=== PATIENT | female | born 1930 | race Caucasian/White ===

== ENCOUNTER 2016-09-17 16:59 | Emergency (ER) | payer MEDICARE, BC ==
[2016-09-17 17:12] VITALS: RESP 16
[2016-09-17] MEDS ORDERED: IBUPROFEN 600 MG TAB PO STA (17:30)
--- NOTE | 2016-09-17 17:39 | ED ---
Fall HPI - General Chief Complaint: Fall Stated Complaint: Fall Time Seen by Provider: 09/17/16 17:15 Source: patient, RN notes reviewed Mode of arrival: ambulatory Limitations: no limitations - History of Present Illness Initial Comments: 86-year-old female presents emergency Department chief complaint fall. Patient states that she missed the railing and states that she fell. She states that she cannot twisted falling into the steps. She complains of a bruise to her right thigh region, left knee pain, low back pain and right wrist pain. She denies any head injury no LOC. Patient states that she was able to ambulate after. He states it does hurt. Patient states there is a large bruise to right thigh and some moran noted to her back. Patient denies any chest pain or shortness breath. Denies any nausea vomiting. Denies any bowel bladder incontinence or retention. - Related Data Home Medications Medication Instructions Recorded Confirmed Levothyroxine Sodium [Synthroid] 112 mcg PO DAILY 09/17/16 09/17/16 Quinapril HCl [Accupril] 40 mg PO DAILY 09/17/16 09/17/16 Timolol 0.5% Ophth Soln [Timoptic 1 drop BOTH EYES DAILY 09/17/16 09/17/16 0.5% Ophth Soln] amLODIPine BESYLATE [Norvasc] 5 mg PO DAILY 09/17/16 09/17/16 Allergies Allergy/AdvReac Type Severity Reaction Status Date / Time No Known Allergies Allergy Verified 09/17/16 17:12 Review of Systems ROS Statement: Those systems with pertinent positive or pertinent negative responses have been documented in the HPI. ROS Other: All systems not noted in ROS Statement are negative. Past Medical History Past Medical History: Hypertension, Thyroid Disorder Additional Past Medical History / Comment(s): glaucoma History of Any Multi-Drug Resistant Organisms: None Reported Past Surgical History: Appendectomy, Cholecystectomy, Tonsillectomy Additional Past Surgical History / Comment(s): neck, thyoid Past Psychological History: No Psychological Hx Reported Smoking Status: Never smoker Past Alcohol Use History: Daily Past Drug Use History: None Reported General Exam Limitations: no limitations General appearance: alert, in no apparent distress Head exam: Present: atraumatic, normocephalic, normal inspection Eye exam: Present: normal appearance, PERRL, EOMI. Absent: scleral icterus, conjunctival injection, periorbital swelling ENT exam: Present: normal exam, normal oropharynx, mucous membranes moist Neck exam: Present: normal inspection, full ROM. Absent: tenderness, meningismus, lymphadenopathy Respiratory exam: Present: normal lung sounds bilaterally. Absent: respiratory distress, wheezes, rales, rhonchi, stridor, chest wall tenderness Cardiovascular Exam: Present: regular rate, normal rhythm, normal heart sounds. Absent: systolic murmur, diastolic murmur, rubs, gallop, clicks GI/Abdominal exam: Present: soft, normal bowel sounds. Absent: distended, tenderness, guarding, rebound, rigid Extremities exam: Present: other (Left knee full range of motion mild swelling no ecchymosis noted neurovascular intact made his pelvis varus negative anterior posterior drawer test there is some ecchymosis noted to the right thigh region there is no bony tenderness patient is able to fully bear weight with no difficulty. There is no shortening or external rotation or internal rotation. Patient's left upper extremity within normal limits there is mild tenderness to the right wrist.) Back exam: Present: full ROM, tenderness (Lumbar region), paraspinal tenderness. Absent: normal inspection (Ecchymotic moran to the left low back), vertebral tenderness Neurological exam: Present: alert, oriented X3, CN II-XII intact, reflexes normal. Absent: motor sensory deficit Skin exam: Present: warm, dry, intact, normal color. Absent: rash Course Vital Signs 09/17/16 09/17/16 17:08 18:07 Temperature 98.3 F Pulse Rate 73 Respiratory 16 Rate Blood Pressure 197/96 161/77 O2 Sat by Pulse 98 Oximetry Medical Decision Making - Medical Decision Making 86-year-old female sent emergency department for fall. Patient has no acute fractures. Patient has multiple contusions, left knee sprain of back injury. Patient we discharged at this time. Return parameters were discussed. Disposition Clinical Impression: Fall, Knee sprain, Contusion of leg, Back contusion Disposition: HOME SELF-CARE Condition: Stable Instructions: Knee Sprain (ED) Additional Instructions: Please return to the Emergency Department if symptoms worsen or any other concerns. Referrals: Roge Montenegro MD [Primary Care Provider] - 1-2 days Time of Disposition: 18:11
--- NOTE | 2016-09-17 18:06 | XR ---
EXAMINATION TYPE: XR wrist complete RT DATE OF EXAM: 09/17/2016 5:58 PM CLINICAL HISTORY: Pain after fall injury. TECHNIQUE: Frontal, lateral, scaphoid, and oblique images of the right wrist are obtained. COMPARISON: None FINDINGS: Osseous structures are demineralized which is noted to lower radiographic sensitivity. Ther e is no acute fracture/dislocation evident in the right wrist. There is subluxation first metacarpoph alangeal joint with marked joint space loss and heterotopic ossification seen. Subluxation is likely chronic. The overlying soft tissue appears unremarkable. IMPRESSION: There is no acute fracture in the right wrist.
[2016-09-17 18:07] VITALS: BP 161/77
--- NOTE | 2016-09-17 18:07 | XR ---
EXAMINATION TYPE: XR knee complete LT DATE OF EXAM: 09/17/2016 5:58 PM CLINICAL HISTORY: Left knee pain after fall injury. TECHNIQUE: Three views of the left knee are obtained. COMPARISON: None. FINDINGS: Osseous structures are demineralized. There is no acute fracture/dislocation evident in lef t knee. Moderate tricompartment joint space loss is seen. There is mild to moderate tricompartment sp urring. The overlying soft tissue appears unremarkable. IMPRESSION: There is no acute fracture or dislocation in the left knee.
--- NOTE | 2016-09-17 18:08 | XR ---
EXAMINATION TYPE: XR lumbar spine 2 or 3V DATE OF EXAM: 09/17/2016 5:58 PM CLINICAL HISTORY: Low back pain after fall injury. TECHNIQUE: Frontal and lateral images of the lumbar spine are obtained. COMPARISON: None FINDINGS: Osseous structures are demineralized which is noted lower radiographic sensitivity. There a re 5 lumbar type vertebral bodies identified. The lumbar spine shows levoconvex scoliosis centered a t L3 level without evidence of acute fracture or dislocation. Vertebral body heights are within reny l limits. There is multilevel mild to moderate disc space narrowing most prominent L4-L5 level with relative sparing of the L2-L3 level. There is multilevel facet arthropathy most prominent in lower l umbar levels. There is mild multilevel lateral spurring most prominent in mid to lower lumbar levels. Some vascular calcification overlying soft tissue is seen. IMPRESSION: No acute fracture or dislocation is seen in the lumbar spine.
[2016-09-17 18:21] VITALS: PULSE 78; TEMP 97
== END 2016-09-17 18:21 | disposition home or self-care (01) ==
LOC: EC 16:59
DX: S83.91XA Sprain of unspecified site of right knee, initial encounter (principal); S30.0XXA Contusion of lower back and pelvis, initial encounter; S70.11XA Contusion of right thigh, initial encounter; I10 Essential (primary) hypertension; E07.9 Disorder of thyroid, unspecified; Z79.899 Other long term (current) drug therapy; W10.9XXA Fall (on) (from) unspecified stairs and steps, initial encounter; Y93.01 Activity, walking, marching and hiking
CPT/HCPCS: 72100; 99283

== ENCOUNTER 2017-03-23 06:54 | Inpatient (IN) | payer MEDICARE, BC ==
--- NOTE | 2017-03-23 07:31 | ED ---
General Adult HPI - General Chief complaint: Shortness of Breath Stated complaint: palpitations Time Seen by Provider: 03/23/17 07:00 Source: patient, EMS, RN notes reviewed Mode of arrival: EMS Limitations: no limitations - History of Present Illness Initial comments: 86-year-old female presents with chief complaint of chest tightness and shortness of breath. Patient has no known history of coronary artery disease, only past medical history is hypertension and hypothyroidism. She states that at approximately 5 AM she had some central chest tightness and shortness of breath. She does describe this as a mild pressure. No cough. No fever. Patient states that yesterday she was busy with housework, and did notice an ache in her left arm. No chest pain associated with this. Patient denies nausea or vomiting. Denies diaphoresis. Denies fever or chills. Patient is a nonsmoker. - Related Data Home Medications Medication Instructions Recorded Confirmed Levothyroxine Sodium [Synthroid] 112 mcg PO DAILY 09/17/16 03/23/17 Quinapril HCl [Accupril] 40 mg PO DAILY 09/17/16 03/23/17 Timolol 0.5% Ophth Soln [Timoptic 1 drop BOTH EYES DAILY 09/17/16 03/23/17 0.5% Ophth Soln] amLODIPine BESYLATE [Norvasc] 5 mg PO DAILY 09/17/16 03/23/17 Allergies Allergy/AdvReac Type Severity Reaction Status Date / Time No Known Allergies Allergy Verified 03/23/17 07:59 Review of Systems ROS Statement: Those systems with pertinent positive or pertinent negative responses have been documented in the HPI. ROS Other: All systems not noted in ROS Statement are negative. Past Medical History Past Medical History: Hypertension, Thyroid Disorder Additional Past Medical History / Comment(s): glaucoma History of Any Multi-Drug Resistant Organisms: None Reported Past Surgical History: Appendectomy, Cholecystectomy, Tonsillectomy Additional Past Surgical History / Comment(s): neck, thyoid Past Psychological History: No Psychological Hx Reported Smoking Status: Never smoker Past Alcohol Use History: Daily Past Drug Use History: None Reported General Exam Limitations: no limitations General appearance: alert, in no apparent distress Head exam: Present: atraumatic, normocephalic Eye exam: Present: normal appearance, PERRL ENT exam: Present: normal exam Neck exam: Present: normal inspection, full ROM. Absent: tenderness, meningismus Respiratory exam: Present: normal lung sounds bilaterally. Absent: respiratory distress, wheezes Cardiovascular Exam: Present: regular rate, normal rhythm GI/Abdominal exam: Present: soft. Absent: distended, tenderness Extremities exam: Present: normal inspection, normal capillary refill. Absent: pedal edema, calf tenderness Back exam: Present: normal inspection. Absent: full ROM, tenderness Neurological exam: Present: alert, oriented X3, CN II-XII intact. Absent: motor sensory deficit Psychiatric exam: Present: normal affect, normal mood Skin exam: Present: warm, dry, intact. Absent: cyanosis, diaphoretic Course Vital Signs 03/23/17 03/23/17 03/23/17 06:57 08:44 09:46 Temperature 97.2 F L 97.6 F Pulse Rate 67 53 L 58 L Respiratory 17 18 16 Rate Blood Pressure 179/83 159/76 137/69 O2 Sat by Pulse 98 98 97 Oximetry EKG Findings - EKG Comments: EKG Findings:: EKG shows normal sinus rhythm ventricular rate of 69, MO interval 170, QRS duration 80, QTC [address] segment elevation or depression Medical Decision Making - Medical Decision Making 86-year-old female presenting with chest pain and shortness of breath. Pain is very mild. According to the patient's daughter she has had several episodes over the past weeks. She also has had some mild shortness of breath. EKG shows normal sinus rhythm, no ST segment elevation or depression, no T-wave abnormality. Patient's history is concerning for anginal pain. Patient is pain -free while in the emergency department. Chest x-rays obtained, shows cardiomegaly with no pulmonary edema. D-dimer is elevated at 0.84, CT angiography is obtained, this is negative for pulmonary and wasn't, there is mild interstitial edema. Given the cardiomegaly and fluid on computed tomography scan, there is concern for new onset heart failure. Patient has no clinical signs of right-sided heart failure and lungs are clear on auscultation , patient is not requiring supplemental oxygen. Troponin is negative. BNP is negative. Patient will be admitted for serial troponins, echo and cardiology consult. Diagnosis: Chest pain, concern for new onset heart failure. - Lab Data Result diagrams: 03/23/17 08:42 03/23/17 08:42 Lab Results 03/23/17 03/23/17 03/23/17 Range/Units 08:42 08:42 08:42 WBC 5.5 (3.8-10.6) k/uL RBC 4.96 (3.80-5.40) m/uL Hgb 14.7 (11.4-16.0) gm/dL Hct 42.8 (34.0-46.0) % MCV 86.3 (80.0-100.0) fL MCH 29.7 (25.0-35.0) pg MCHC 34.4 (31.0-37.0) g/dL RDW 12.2 (11.5-15.5) % Plt Count 218 (150-450) k/uL Neutrophils % 64 % Lymphocytes % 22 % Monocytes % 7 % Eosinophils % 3 % Basophils % 1 % Neutrophils # 3.5 (1.3-7.7) k/uL Lymphocytes # 1.2 (1.0-4.8) k/uL Monocytes # 0.4 (0-1.0) k/uL Eosinophils # 0.2 (0-0.7) k/uL Basophils # 0.0 (0-0.2) k/uL PT (9.0-12.0) sec INR (<1.2) APTT (22.0-30.0) sec D-Dimer (<0.60) mg/L FEU Sodium 135 L (137-145) mmol/L Potassium 4.6 (3.5-5.1) mmol/L Chloride 104 (98-107) mmol/L Carbon Dioxide 23 (22-30) mmol/L Anion Gap 8 mmol/L BUN 16 (7-17) mg/dL Creatinine 0.65 (0.52-1.04) mg/dL Est GFR (MDRD) Af Amer >60 (>60 ml/min/1.73 sqM) Est GFR (MDRD) Non-Af >60 (>60 ml/min/1.73 sqM) Glucose 116 H (74-99) mg/dL Calcium 9.1 (8.4-10.2) mg/dL Magnesium 1.7 (1.6-2.3) mg/dL Total Bilirubin 0.5 (0.2-1.3) mg/dL AST 25 (14-36) U/L ALT 30 (9-52) U/L Alkaline Phosphatase 61 (38-126) U/L Total Creatine Kinase 37 (30-135) U/L CK-MB (CK-2) 0.9 (0.0-2.4) ng/mL CK-MB (CK-2) Rel Index 2.4 Troponin I <0.012 (0.000-0.034) ng/mL NT-Pro-B Natriuret Pep pg/mL Total Protein 6.1 L (6.3-8.2) g/dL Albumin 3.4 L (3.5-5.0) g/dL 03/23/17 03/23/17 Range/Units 08:42 08:42 WBC (3.8-10.6) k/uL RBC (3.80-5.40) m/uL Hgb (11.4-16.0) gm/dL Hct (34.0-46.0) % MCV (80.0-100.0) fL MCH (25.0-35.0) pg MCHC (31.0-37.0) g/dL RDW (11.5-15.5) % Plt Count (150-450) k/uL Neutrophils % % Lymphocytes % % Monocytes % % Eosinophils % % Basophils % % Neutrophils # (1.3-7.7) k/uL Lymphocytes # (1.0-4.8) k/uL Monocytes # (0-1.0) k/uL Eosinophils # (0-0.7) k/uL Basophils # (0-0.2) k/uL PT 10.4 (9.0-12.0) sec INR 1.0 (<1.2) APTT 23.2 (22.0-30.0) sec D-Dimer 0.84 H (<0.60) mg/L FEU Sodium (137-145) mmol/L Potassium (3.5-5.1) mmol/L Chloride (98-107) mmol/L Carbon Dioxide (22-30) mmol/L Anion Gap mmol/L BUN (7-17) mg/dL Creatinine (0.52-1.04) mg/dL Est GFR (MDRD) Af Amer (>60 ml/min/1.73 sqM) Est GFR (MDRD) Non-Af (>60 ml/min/1.73 sqM) Glucose (74-99) mg/dL Calcium (8.4-10.2) mg/dL Magnesium (1.6-2.3) mg/dL Total Bilirubin (0.2-1.3) mg/dL AST (14-36) U/L ALT (9-52) U/L Alkaline Phosphatase (38-126) U/L Total Creatine Kinase (30-135) U/L CK-MB (CK-2) (0.0-2.4) ng/mL CK-MB (CK-2) Rel Index Troponin I (0.000-0.034) ng/mL NT-Pro-B Natriuret Pep 273 pg/mL Total Protein (6.3-8.2) g/dL Albumin (3.5-5.0) g/dL Disposition Clinical Impression: Congestive heart failure, Chest pain Disposition: ADMITTED IP TO THIS [facility] Condition: Stable Referrals: Roge Montenegro MD [Primary Care Provider] - 1-2 days Decision to Admit Reason: Admit from EC Decision Date: 03/23/17 Decision Time: 11:11
[2017-03-23 09:04] LABS: Basophils % (A) 1 %; CH 30.7; CHCM 35.7; Eosinophils # (A) 0.2 k/uL (0-0.7); Eosinophils % (A) 3 %; HCT 42.8 % (34.0-46.0); HDW 2.54; HGB 14.7 gm/dL (11.4-16.0); Luc # (Auto) 0.19; Luc % (Auto) 4; Lymphocytes # (A) 1.2 k/uL (1.0-4.8); Lymphocytes % (A) 22 %; MCH 29.7 pg (25.0-35.0); MCHC 34.4 g/dL (31.0-37.0); MCV 86.3 fL (80.0-100.0); Mean Platelet Volume 7.7; Monocytes # (A) 0.4 k/uL (0-1.0); Monocytes % (A) 7 %; Neutrophils # (A) 3.5 k/uL (1.3-7.7); Neutrophils % (A) 64 %; RBC 4.96 m/uL (3.80-5.40); RDW 12.2 % (11.5-15.5); WBC 5.5 k/uL (3.8-10.6); WBC (Perox) 5.38
[2017-03-23 09:05] LABS: ALT 30 U/L (9-52); AST 25 U/L (14-36); Alkaline Phosphatase 61 U/L (38-126); Anion Gap 8 mmol/L; Blood Urea Nitrogen 16 mg/dL (7-17); Calcium 9.1 mg/dL (8.4-10.2); Carbon Dioxide 23 mmol/L (22-30); Chloride 104 mmol/L (98-107); Glucose 116 mg/dL (74-99); Magnesium 1.7 mg/dL (1.6-2.3); Non-African American GFR(MDRD) >60 (>60 ml/min/1.73 sqM); Potassium 4.6 mmol/L (3.5-5.1); Sodium 135 mmol/L (137-145); Total Bilirubin 0.5 mg/dL (0.2-1.3); Total Protein 6.1 g/dL (6.3-8.2)
--- NOTE | 2017-03-23 09:08 | XR ---
EXAMINATION TYPE: XR chest 2V DATE OF EXAM: 03/23/2017 HISTORY: Chest Pain. REFERENCE: Previous study dated 10/26/2012. FINDINGS: Heart size is upper limits of normal. There is some unfolding of the thoracic aorta. The nicholas ngs are clear. Pleural spaces are clear. IMPRESSION: BORDERLINE CARDIOMEGALY.
[2017-03-23 09:15] LABS: Partial Thromboplastin Time 23.2 sec (22.0-30.0); Prothrombin Time 10.4 sec (9.0-12.0)
[2017-03-23 09:19] LABS: Creatine Kinase 37 U/L (30-135)
[2017-03-23 09:32] LABS: Creatine Kinase MB 0.9 ng/mL (0.0-2.4); Troponin I <0.012 ng/mL (0.000-0.034)
[2017-03-23] MEDS ORDERED: RX INFO: IV CONTRAST WAS GIVEN 1 EACH MISC MISCELLANE PRN (09:51)
--- NOTE | 2017-03-23 10:29 | CT ---
EXAMINATION TYPE: CT angio chest DATE OF EXAM: 03/23/2017 10:21 AM COMPARISON: NONE HISTORY: Difficulty breathing CT DLP: 318.9 mGycm Automated exposure control for dose reduction was used. CONTRAST: CTA scan of the thorax is performed with IV Contrast, patient injected with 100 mL of Omnipaque 350, pulmonary embolism protocol. . FINDINGS: There are increased interstitial markings throughout the chest. There is dependent atelecta sis in the dependent portions of the lungs. There is no significant axillary, internal mammary, mediastinal or hilar adenopathy. There is no evidence of pulmonary embolus. The aorta is normal in caliber without evidence of dissect ion. There is no pleural or pericardial fluid. The heart is enlarged. 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 Visualized portions of the upper abdomen are othe rwise unremarkable. There is mild hypertrophic spondylosis within the spine. IMPRESSION: #1 THIS EXAMINATION IS NEGATIVE FOR PULMONARY EMBOLUS. 2. CARDIOMEGALY AND INCREASED INTERSTITIAL RAISES A POSSIBILITY OF MILD HEART FAILURE. PLEASE CORRELA TE CLINICALLY.
[2017-03-23] MEDS ORDERED: FUROSEMIDE 10 MG/ML 2 ML VIAL IV ONE (10:46)
[2017-03-23] MEDS ORDERED: ASPIRIN 325 MG TAB PO STA (10:46)
[2017-03-23] MEDS ORDERED: ACETAMINOPHEN TAB 325 MG TAB PO PRN (11:03)
[2017-03-23] MEDS ORDERED: ONDANSETRON 4 MG/2 ML VIAL IVP PRN (11:03)
[2017-03-23] MEDS ORDERED: NALOXONE 0.4 MG/ML 1 ML VIAL IV PRN (11:03)
[2017-03-23] MEDS: amLODIPine 5 MG TAB PO STA ×2 (12:00→17:11)
[2017-03-23 12:46] VITALS: BMI 32.9
[2017-03-23 14:52] LABS: Creatine Kinase 41 U/L (30-135)
[2017-03-23 15:05] LABS: Creatine Kinase MB 0.8 ng/mL (0.0-2.4); Troponin I <0.012 ng/mL (0.000-0.034)
[2017-03-23 20:43] VITALS: RESP 16
[2017-03-23 21:43] LABS: Creatine Kinase 41 U/L (30-135)
[2017-03-23 21:56] LABS: Creatine Kinase MB 0.6 ng/mL (0.0-2.4); Troponin I <0.012 ng/mL (0.000-0.034)
[2017-03-23] MEDS ORDERED: MELATONIN 3 MG TABLET PO SCH (22:00)
--- NOTE | 2017-03-23 22:01 | P.HPIM ---
History of Present Illness H&P Date: 03/23/17 Chief Complaint: Shortness of breath chest tightness HISTORY OF PRESENT ILLNESS: 86-year-old female patient of Dr. Roge Montenegro with chronic stable medical conditions that include hypertension, thyroid disorder, glaucoma who was admitted with shortness of breath chest tightness. states that she had been very busy with throughout the week with housework and towards the end of the week did notice an ache in her left arm, with a profound tiredness that overcame her. Had no other symptoms at that time and didn't think much of it. States about 5 AM she began having central chest tightness and shortness of breath. Described as mild pressure, no diaphoresis no nausea or vomiting, fever or chills. REVIEW OF SYSTEMS GEN.: [ Tired] EYES: [None] HEENT: [None] NECK: [None] RESPIRATORY: [Some shortness of breath] CARDIOVASCULAR: [Chest pain ] GASTROINTESTINAL: [None] GENITOURINARY: [None] MUSCULOSKELETAL: [None] LYMPHATICS: [None] HEMATOLOGICAL: [None] PSYCHIATRY: [None] NEUROLOGICAL: [None] PAST MEDICAL HISTORY Past medical history: Hypertension, hypothyroidism, glaucoma Past surgical history: Appendectomy, cholecystectomy, tonsillectomy. Thyroidectomy Past psychological history: None SOCIAL HISTORY: Additional psychological/social history: Smoking use history: None Alcohol use history: One to 2 glasses of wine every day Drug use history: None FAMILY HISTORY: Mother: : Stroke at age 80 Father: : "Heart problems" during a minor procedure Son: Living: Stroke at age 33 HOME MEDICATION: Norvasc 5 mg by mouth daily Timoptic 1 drop both eyes daily Accupril 40 mg by mouth daily Levothyroxine sodium 112 g by mouth daily ALLERGIES: NO KNOWN ALLERGIES VITAL SIGNS: [Temperature 97.0, pulse 67, respiratory rate 16, blood pressure 143/73, oxygen saturation 99% on room air. BMI noted] GENERAL: [Average built, sitting up, comfortable]. EYES: [Pupils equal. Conjunctiva reny]l. HEENT: [External appearance of nose and ears normal, oral cavity grossly normal] . NECK: [JVD not raised; masses not palpable]. HEART: [First and second heart sounds are normal; no edema]. LUNGS:[ Respiratory rate normal; diminished to auscultation]. ABDOMEN: [Soft, nontender, liver spleen not palpable, no masses palpable]. LYMPHATICS: [No lymph nodes palpable in the axilla and neck]. PSYCH: [Alert and oriented x3; mood and affect reny]l. NEUROLOGICAL: [Cranial nerves grossly intact; no facial asymmetry, power and sensation grossly intact]. INVESTIGATIONS: CBC unremarkable, d-dimer 0.84, sodium [address]: Negative for PE, cardiomegaly and increased interstitial races possibility of mild heart failure. Chest x-ray: Borderline cardiomegaly. ASSESSMENT: -Possible unstable angina in a patient with no prior cardiac history -Essential hypertension. -Hypothyroidism PLAN: Home medications reordered, cardiology consulted plan of care discussed with the patient the bedside. We'll follow closely. PHILOSOPHY FACULTY STATEMENT: Patient was seen and examined by nurse practitioner Luisa Watts in all elements of the case discussed with attending Dr. Rosales. Past Medical History Past Medical History: Hypertension, Thyroid Disorder Additional Past Medical History / Comment(s): glaucoma History of Any Multi-Drug Resistant Organisms: None Reported Past Surgical History: Appendectomy, Cholecystectomy, Tonsillectomy Additional Past Surgical History / Comment(s): neck, thyoid Smoking Status: Never smoker - Past Family History Mother Family Medical History: CVA/TIA Father Additional Family Medical History / Comment(s): Patient states father had history of "heart issues" and during heart operation. Brother(s) Family Medical History: No Reported History Sister(s) Family Medical History: No Reported History Medications and Allergies Home Medications Medication Instructions Recorded Confirmed Type Levothyroxine Sodium [Synthroid] 112 mcg PO DAILY 09/17/16 03/23/17 History Quinapril HCl [Accupril] 40 mg PO DAILY 09/17/16 03/23/17 History Timolol 0.5% Ophth Soln [Timoptic 1 drop BOTH EYES DAILY 09/17/16 03/23/17 History 0.5% Ophth Soln] amLODIPine BESYLATE [Norvasc] 5 mg PO DAILY 09/17/16 03/23/17 History Allergies Allergy/AdvReac Type Severity Reaction Status Date / Time No Known Allergies Allergy Verified 03/23/17 07:59 Physical Exam Vitals: Vital Signs Temp Pulse Pulse Resp BP BP Pulse Ox 03/23/17 20:00 97 F L 67 16 143/73 99 03/23/17 15:42 96.8 F L 66 20 190/81 97 03/23/17 13:11 97.1 F L 58 L 20 177/79 98 03/23/17 11:56 53 L 20 161/75 98 03/23/17 11:43 98.5 F 57 L 20 181/74 97 03/23/17 11:10 62 18 150/94 96 03/23/17 09:46 97.6 F 58 L 16 137/69 97 03/23/17 08:44 53 L 18 159/76 98 03/23/17 06:57 97.2 F L 67 17 179/83 98 Intake and Output 03/23/17 03/23/17 03/23/17 06:59 14:59 22:59 Intake Total 236 Output Total 300 Balance -64 Intake: Oral 236 Output: Urine 300 Other: Voiding Method Toilet # Voids 4 1 Weight 79.379 kg 79.09 kg Patient Weight 03/24/17 06:59 Weight 79.09 kg Results CBC & Chem 7: 03/23/17 08:42 03/23/17 08:42 Labs: Abnormal Lab Results - Last 24 Hours (Table) 03/23/17 03/23/17 Range/Units 08:42 08:42 D-Dimer 0.84 H (<0.60) mg/L FEU Sodium 135 L (137-145) mmol/L Glucose 116 H (74-99) mg/dL Total Protein 6.1 L (6.3-8.2) g/dL Albumin 3.4 L (3.5-5.0) g/dL Thrombosis Risk Factor Assmnt - Choose All That Apply Any of the Below Risk Factors Present?: Yes Each Factor Represents 1 point: Heart failure (<1month) Each Risk Factor Represents 3 Points: Age 75 years or older Thrombosis Risk Factor Assessment Total Risk Factor Score: 4 Thrombosis Risk Factor Assessment Level: Moderate Risk
--- NOTE | 2017-03-23 22:18 | HP ---
HISTORY AND PHYSICAL DATE OF ADMISSION: March 23, 2017. ATTENDING NOTE: This patient is seen and examined by me. Discussed with my nurse practitioner, Ms. Watts. Slightly pleasant 86-year-old patient of Dr. Montenegro. Chronic stable medical conditions include hypertension, hypothyroidism. 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 The patient normally does not sleep very well. The patient woke up with a heavy sensation in the middle of the chest. No shortness of breath. No dizziness, lightheadedness, feeling extremely tired and run down. Hence patient presented with what is felt could be unstable angina. No prior cardiac history. The patient is a nonsmoker. PHYSICAL EXAMINATION: Temperature 97.2, pulse 57, respirations 17, blood pressure 159/76, pulse ox 98% on 2 L. GENERAL APPEARANCE: Well built, BMI 32.9, lying in bed, tired appearing. Eyes pupils equal. Conjunctivae normal. NECK: JVD not raised. Mass not palpable. Respiratory effort lungs fair entry. Cardiovascular first and second sounds normal. No edema. ABDOMEN: Soft, nontender. Liver and spleen not palpable. INVESTIGATIONS: White count 5.2, hemoglobin 14.7, potassium 4.6. Troponin x2 negative. EKG normal sinus rhythm. Chest CTA, negative for PE, some cardiomegaly and some interstitial prominence. ASSESSMENT: 1. Possible unstable angina in a patient whose cardiac risk factors include hypertension, her age, obesity. 2. Obesity BMI 32.9. 3. Essential hypertension. 4. Hypothyroidism. The patient could be under replaced and this could well explain her symptoms. 5. Sleep deprivation due to multiple social issues. PLAN: We will check patient's thyroid status in the morning. The patient will probably need at least a stress test. The patient is given melatonin for sleep and have a cardiology consultation. Also order 2D echo. Copy to Dr. Montenegro. MMODL / IJN: [id number] /
[2017-03-24] MEDS ORDERED: LEVOTHYROXINE 112 MCG TAB PO SCH (06:30)
[2017-03-24 06:42] LABS: Basophils % (A) 1 %; CH 30.1; CHCM 33.9; Eosinophils # (A) 0.2 k/uL (0-0.7); Eosinophils % (A) 4 %; HCT 42.4 % (34.0-46.0); HDW 2.26; HGB 14.1 gm/dL (11.4-16.0); Luc # (Auto) 0.17; Luc % (Auto) 3; Lymphocytes # (A) 1.5 k/uL (1.0-4.8); Lymphocytes % (A) 25 %; MCH 29.7 pg (25.0-35.0); MCHC 33.4 g/dL (31.0-37.0); MCV 89.1 fL (80.0-100.0); Mean Platelet Volume 8.3; Monocytes # (A) 0.6 k/uL (0-1.0); Monocytes % (A) 11 %; Neutrophils # (A) 3.4 k/uL (1.3-7.7); Neutrophils % (A) 57 %; RBC 4.76 m/uL (3.80-5.40); RDW 13.3 % (11.5-15.5)
[2017-03-24 06:53] LABS: ALT 38 U/L (9-52); AST 23 U/L (14-36); Alkaline Phosphatase 62 U/L (38-126); Anion Gap 7 mmol/L; Blood Urea Nitrogen 16 mg/dL (7-17); Calcium 9.1 mg/dL (8.4-10.2); Carbon Dioxide 27 mmol/L (22-30); Chloride 97 mmol/L (98-107); Glucose 102 mg/dL (74-99); Non-African American GFR(MDRD) >60 (>60 ml/min/1.73 sqM); Potassium 4.5 mmol/L (3.5-5.1); Sodium 131 mmol/L (137-145); Total Bilirubin 0.5 mg/dL (0.2-1.3); Total Protein 5.9 g/dL (6.3-8.2)
[2017-03-24 08:00] VITALS: BP 135/69; PULSE 64; TEMP 97
[2017-03-24] MEDS ORDERED: amLODIPine 5 MG TAB PO SCH (09:00)
[2017-03-24] MEDS ORDERED: FUROSEMIDE 20 MG TAB PO SCH (09:00)
[2017-03-24] MEDS ORDERED: ENOXAPARIN 40 MG/0.4 ML SYRINGE SQ SCH (09:00)
[2017-03-24] MEDS ORDERED: TIMOLOL 0.5% OPHTH DROPS 5 ML BTL BOTH EYES SCH (09:00)
[2017-03-24] MEDS ORDERED: ASPIRIN 325 MG TAB PO SCH (09:00)
[2017-03-24] MEDS ORDERED: LISINOPRIL 20 MG TAB PO SCH (09:00)
[2017-03-24] MEDS ORDERED: REGADENOSON 0.4 MG/5 ML SYRINGE IV ONE (10:45)
--- NOTE | 2017-03-24 10:48 | ECHOF ---
Referral Reason:chest pressure/tired MEASUREMENTS -------- HEIGHT: 154.9 cm WEIGHT: 78.9 kg BP: 144/79 IVSd: 1.0 cm (0.6 - 1.1) LVIDd: 3.4 cm (3.9 - 5.3) LVPWd: 0.9 cm (0.6 - 1.1) IVSs: 1.1 cm LVIDs: 2.7 cm LVPWs: 1.4 cm Ao Diam: 3.1 cm (2.0 - 3.7) AV Cusp: 1.7 cm (1.5 - 2.6) LA Diam: 3.8 cm (2.7 - 3.8) MV EXCURSION: 12.690 mm (> 18.000) MV EF SLOPE: 53 mm/s (70 - 150) EPSS: 0.6 cm MV E Chacho: 0.77 m/s MV DecT: 225 ms MV A Chacho: 1.12 m/s MV E/A Ratio: 0.68 RAP: 5.00 mmHg RVSP: 35.63 mmHg FINDINGS -------- Sinus rhythm. This was a technically good study. The left ventricular size is normal. There is mild concentric left ventricular hypertrophy. Overa ll left ventricular systolic function is normal with, an EF between 55 - 60 %. The right ventricle is normal in size. The left atrium is normal in size. The right atrium is normal in size. Aortic valve is trileaflet and is mildly thickened. The mitral valve leaflets are mildly thickened. Mild mitral regurgitation is present. Mild tricuspid regurgitation present. The right ventricular systolic pressure, as measured by Doppl er, is 35.63mmHg. Pulmonic valve appears structurally normal. The aortic root size is normal. Normal inferior vena cava with normal inspiratory collapse consistent with estimated right atrial pre ssure of 5 mmHg. The pericardium is normal. CONCLUSIONS -------- 1. Sinus rhythm. 2. This was a technically good study. 3. The left ventricular size is normal. 4. There is mild concentric left ventricular hypertrophy. 5. Overall left ventricular systolic function is normal with, an EF between 55 - 60 %. 6. The right ventricle is normal in size. 7. The left atrium is normal in size. 8. The right atrium is normal in size. 9. Aortic valve is trileaflet and is mildly thickened. 10. The mitral valve leaflets are mildly thickened. 11. Mild mitral regurgitation is present. 12. Mild tricuspid regurgitation present. 13. The right ventricular systolic pressure, as measured by Doppler, is 35.63mmHg. 14. Pulmonic valve appears structurally normal. 15. The aortic root size is normal. 16. Normal inferior vena cava with normal inspiratory collapse consistent with estimated right atrial pressure of 5 mmHg. 17. The pericardium is normal. P[employer]ET FINISHER: Grteta Vargas RDCS
--- NOTE | 2017-03-24 14:45 | NM ---
EXAMINATION TYPE: NM stress lexiscan cardiolite DATE OF EXAM: 03/24/2017 COMPARISON: NONE HISTORY: 86-year-old female with chest pain and shortness of breath TECHNIQUE: After the intravenous administration of 11.23 mCi Tc 99m Sestamibi - Cardiolite resting S PECT images acquired 45 minutes post injection. The patient received 0.4mg Lexiscan, 27.8 mCi Tc 99m Sestamibi - Stress images obtained [address] injection FINDINGS: Review of stress and rest SPECT images demonstrates no distinct perfusion abnormality. Gated analysi s shows normal wall motion with an estimated left ventricular ejection fraction of 91 %. TID is calc ulated at 1.25 which is mildly elevated. IMPRESSION: 1. Elevated TID at 1.25. This can be seen in the setting of diffuse, multivessel balanced ischemia. F urther clinical correlation recommended. No scintigraphic evidence for a focal reversible ischemic de fect. 2. Note estimated LVEF of 91% on this exam. Suspect some technical artifacts artifactually elevating this value.
--- NOTE | 2017-03-24 15:04 | P.CRDCN ---
History of Present Illness Consult date: 03/24/17 Requesting physician: Berny Rosales Reason for Consult (text): chest pain Chief complaint: chest discomfort, shortness of breath History of present illness: A pleasant 86-year-old female patient with a past medical history significant for hypertension, hypothyroidism and anxiety. She presented to the emergency department with chief complaint of chest discomfort as well as shortness of breath. According to her this chest discomfort has occurred in the past however the shortness of breath was a new symptom for her. She was sitting up at her dining room table drinking coffee when she developed this discomfort. She has usually very active and yesterday while she was doing housework she did notice some left arm discomfort and shoulder discomfort. Upon it arrival EKG showed normal sinus rhythm. Troponins have been negative 3. She underwent a CT of the chest that showed no evidence of a pulmonary embolism and some cardiomegaly as well as increased interstitial markings that raise the possibility of mild heart failure. Her BNP was not elevated at 273. She's had no edema or orthopnea or PND. Past Medical History Past Medical History: Hypertension, Thyroid Disorder Additional Past Medical History / Comment(s): glaucoma History of Any Multi-Drug Resistant Organisms: None Reported Past Surgical History: Appendectomy, Cholecystectomy, Tonsillectomy Additional Past Surgical History / Comment(s): neck, thyoid Smoking Status: Never smoker - Past Family History Mother Family Medical History: CVA/TIA Father Additional Family Medical History / Comment(s): Patient states father had history of "heart issues" and during heart operation. Brother(s) Family Medical History: No Reported History Sister(s) Family Medical History: No Reported History Medications and Allergies Home Medications Medication Instructions Recorded Confirmed Type Levothyroxine Sodium [Synthroid] 112 mcg PO DAILY 09/17/16 03/23/17 History Quinapril HCl [Accupril] 40 mg PO DAILY 09/17/16 03/23/17 History Timolol 0.5% Ophth Soln [Timoptic 1 drop BOTH EYES DAILY 09/17/16 03/23/17 History 0.5% Ophth Soln] amLODIPine BESYLATE [Norvasc] 5 mg PO DAILY 09/17/16 03/23/17 History Allergies Allergy/AdvReac Type Severity Reaction Status Date / Time No Known Allergies Allergy Verified 03/23/17 07:59 Physical Exam Vitals: Vital Signs Temp Pulse Resp BP Pulse Ox 03/24/17 12:00 64 03/24/17 08:00 97 F L 64 16 135/69 97 03/24/17 03:57 96.9 F L 74 16 144/79 96 03/24/17 00:00 96.6 F L 65 16 142/75 95 03/23/17 20:00 97 F L 67 16 143/73 99 03/23/17 15:42 96.8 F L 66 20 190/81 97 Intake and Output 03/23/17 03/24/17 03/24/17 22:59 06:59 14:59 Intake Total 246 10 Output Total 450 150 Balance -204 -140 Intake: IV 10 10 0.9% NS FLUSH 10 mL 10 10 Oral 236 Output: Urine 450 150 Other: Voiding Method Toilet Toilet # Voids 1 2 3 Weight 79.3 kg 78.925 kg Patient Weight 03/25/17 06:59 Weight 78.925 kg PHYSICAL EXAMINATION: HEENT: Head is atraumatic, normocephalic. Pupils equal, round. Neck is supple. There is no elevated jugular venous pressure. HEART EXAMINATION: Heart sounds regular, S1 and S2 normal. No murmur or gallop heard. CHEST EXAMINATION: Lungs are clear to auscultation and precussion. No chest wall tenderness is noted on palpation or with deep breathing. ABDOMEN: Soft, obese, nontender. Bowel sounds are heard. No organomegaly noted. EXTREMITIES: 2+ peripheral pulses with no evidence of peripheral edema and no calf tenderness noted. NEUROLOGIC patient is awake, alert and oriented x3. . Results 03/24/17 05:46 03/24/17 05:46 Cardiac Enzymes 03/23/17 03/23/17 03/24/17 Range/Units 14:24 21:11 05:46 AST 23 (14-36) U/L CK-MB (CK-2) 0.8 0.6 (0.0-2.4) ng/mL Troponin I <0.012 <0.012 (0.000-0.034) ng/mL CBC 03/24/17 Range/Units 05:46 WBC 6.0 (3.8-10.6) k/uL RBC 4.76 (3.80-5.40) m/uL Hgb 14.1 (11.4-16.0) gm/dL Hct 42.4 (34.0-46.0) % Plt Count 200 (150-450) k/uL Comprehensive Metabolic Panel 03/24/17 Range/Units 05:46 Sodium 131 L (137-145) mmol/L Potassium 4.5 (3.5-5.1) mmol/L Chloride 97 L (98-107) mmol/L Carbon Dioxide 27 (22-30) mmol/L BUN 16 (7-17) mg/dL Creatinine 0.84 (0.52-1.04) mg/dL Glucose 102 H (74-99) mg/dL Calcium 9.1 (8.4-10.2) mg/dL AST 23 (14-36) U/L ALT 38 (9-52) U/L Alkaline Phosphatase 62 (38-126) U/L Total Protein 5.9 L (6.3-8.2) g/dL Albumin 3.3 L (3.5-5.0) g/dL Current Medications Generic Name Dose Route Start Last Admin Trade Name Freq PRN Reason Stop Dose Admin Acetaminophen 650 mg 03/23/17 11:03 Tylenol Tab PO Q6HR PRN Mild Pain or Fever > 100.5 Aminophylline 100 mg 03/25/17 06:00 Aminophylline IV 03/25/17 23:00 ONCE PRN Patient Response Amlodipine Besylate 5 mg 03/24/17 09:00 03/24/17 07:50 Norvasc PO 5 mg DAILY LORNA Administration Aspirin 325 mg 03/24/17 09:00 03/24/17 07:50 Aspirin PO 325 mg DAILY LORNA Administration Enoxaparin Sodium 40 mg 03/24/17 09:00 03/24/17 07:50 Lovenox SQ 40 mg DAILY LORNA Administration Furosemide 20 mg 03/24/17 09:00 03/24/17 07:50 Lasix PO 20 mg DAILY LORNA Administration Levothyroxine Sodium 112 mcg 03/24/17 06:30 03/24/17 05:50 Synthroid PO 112 mcg DAILY@0630 LORNA Administration Lisinopril 40 mg 03/24/17 09:00 03/24/17 07:50 Zestril PO 40 mg DAILY LORNA Administration Melatonin 3 mg 03/23/17 22:00 03/23/17 22:33 Melatonin PO 3 mg HS LORNA Administration Miscellaneous Information 1 each 03/23/17 09:51 Rx Info: Iv Contrast Was Given MISCELLANE 03/25/17 09:51 DAILY PRN Per Protocol Naloxone HCl 0.2 mg 03/23/17 11:03 Narcan IV Q2M PRN Opioid Reversal Ondansetron HCl 4 mg 03/23/17 11:03 Zofran IVP Q8HR PRN Nausea And Vomiting Regadenoson 0.4 mg 03/25/17 06:00 Lexiscan IV 03/25/17 06:01 ONCE ONE Timolol Maleate 1 drops 03/24/17 09:00 03/24/17 07:53 Timoptic BOTH EYES 1 drops DAILY LORNA Administration Intake and Output 03/23/17 03/24/17 03/24/17 22:59 06:59 14:59 Intake Total 246 10 Output Total 450 150 Balance -204 -140 Intake: IV 10 10 0.9% NS FLUSH 10 mL 10 10 Oral 236 Output: Urine 450 150 Other: Voiding Method Toilet Toilet # Voids 1 2 3 Weight 79.3 kg 78.925 kg Patient Weight 03/25/17 06:59 Weight 78.925 kg 03/24/17 05:46 03/24/17 05:46 Assessment and Plan Assessment: #1 symptoms of chest discomfort with shortness of breath, 2-D echo with Doppler and Lexiscan Cardiolite ordered 2 hypertension 3 hypothyroidism Plan: From cardiology's perspective, 2-D echo with Doppler shows a normal LV systolic function with ejection fraction between 55-60%. Lexiscan Cardiolite was reviewed and is normal. From our perspective, patient may be discharged home. SR. VENDOR MANAGEMENT ASSOCIATE note has been reviewed, I agree with a documented findings and plan of care. Patient was seen and examined.
--- NOTE | 2017-03-24 15:55 | P.DS ---
Providers Date of admission: 03/23/17 11:03 Expected date of discharge: 03/24/17 Attending physician: Berny Rosales Consults: 03/23/17 11:06 Consult Physician Urgent Consulting Provider: Aba Maria Consult Reason/Comments: Chest pain, concern for new onset heart failure Do you want consulting provider notified?: Yes Primary care physician: Roge Lan [facility] Course: FINAL DIAGNOSES: -Possible unstable angina in a patient whose cardiac risk factors include hypertension, her age and obesity. -Obesity body mass index 32.9. -Essential hypertension. -Hypothyroidism -Sleep deprivation due to multiple social issues HOSPTIAL COURSE: 86-year-old female patient who was admitted with complaints of chest heaviness in the middle of her chest, feeling extremely tired and rundown. Cardiology consulted, home medications reordered, troponin 2 negative. Chest CTA negative for PE. Symptoms believed to be a result of being tired and rundown, patient received melatonin prior to sleep last night and slept very well. Cardiology sent the patient for stress test Lexiscan Cardiolite reviewed and was normal. Has had no further symptoms, tolerating a diet, ambulatory in the room and hallway, anxious to go home. Overall patient condition is stabilized, consultants agree patient is stable for discharge. PHYSICAL EXAM: CARDIOVASCULAR: First and second sounds noted no edema RESPIRATORY: Respiratory effort normal lung sounds clear to auscultation bilaterally GI: Abdomen soft nontender liver and spleen not palpable. MUSKULOSKELETAL: Ambulatory within the room and denis with a steady gait. PSYCHIATRY: Alert and oriented 3, mood and affect appropriate for the situation. Patient was seen and examined by nurse practitioner Luisa Watts in all elements of the case discussed with attending Dr. Rosales DISPOSITION: Discharge home to the care of her family. Patient Condition at Discharge: Stable Plan - Discharge Summary Discharge Rx Participant: Yes New Discharge Prescriptions: New Melatonin 3 mg PO HS tablet Continue Timolol 0.5% Ophth Soln [Timoptic 0.5% Ophth Soln] 1 drop BOTH EYES DAILY Levothyroxine Sodium [Synthroid] 112 mcg PO DAILY amLODIPine BESYLATE [Norvasc] 5 mg PO DAILY Quinapril HCl [Accupril] 40 mg PO DAILY Discharge Medication List Levothyroxine Sodium [Synthroid] 112 mcg PO DAILY 09/17/16 [History] Quinapril HCl [Accupril] 40 mg PO DAILY 09/17/16 [History] Timolol 0.5% Ophth Soln [Timoptic 0.5% Ophth Soln] 1 drop BOTH EYES DAILY [History] amLODIPine BESYLATE [Norvasc] 5 mg PO DAILY 09/17/16 [History] Melatonin 3 mg PO HS tablet 03/24/17 [Rx] Follow up Appointment(s)/Referral(s): Roge Montenegro MD [Primary Care Provider] - 03/31/17 11:30 am Patient Instructions/Handouts: Angina (DC)
[2017-03-25] MEDS ORDERED: AMINOPHYLLINE 500 MG/20 ML VIAL IV PRN (06:00)
[2017-03-25] MEDS ORDERED: REGADENOSON 0.4 MG/5 ML SYRINGE IV ONE (06:00)
--- NOTE | 2017-03-25 07:31 | DS ---
DISCHARGE SUMMARY DATE OF SERVICE: 03/24/2017 ATTENDING NOTE: Patient is seen and examined by me. I discussed with nurse practitioner, Ms. Watts. The patient's nuclear stress test came back negative. It is felt that patient was severely exhausted and sleep deprived causing her symptoms. Feeling much better after a night's sleep. The patient's family is at the bedside. ON EXAM: Lungs are clear. CARDIOVASCULAR: First and second sounds normal. PE also was ruled out. FINAL DIAGNOSIS: Severe exhaustion and chest pain from sleep deprivation. The patient is to follow up with family doctor. Questions were answered. MMODL / IJN: [id number] /
--- NOTE | 2017-03-25 13:07 | EST ---
EXERCISE STRESS AGE: 86 SEX: F HT: 61 WT: 174 PROTOCOL: Lexiscan Cardiolite Stress Test HEART RATE REST: 65. BLOOD PRESSURE REST: 114/73 MAXIMUM HEART RATE ACHIEVED: 82 MAXIMUM BLOOD PRESSURE: 109/72 85% MPHR: 116 100% MPHR: 136 INDICATIONS: Chest pain. CLINICAL INFORMATION: Patient was given Lexiscan injection over a period of 15 seconds. Resting EKG shows normal sinus rhythm with a normal QRS interval and QRS duration and normal ST-T waves. No ST-segment depression suggestive of ischemia was noted during Lexiscan injection. The results of the nuclear study will follow. MMODL / IJN: [id number] /
== END 2017-03-24 15:51 | disposition home or self-care (01) | DRG 948 ==
LOC: EC 06:54 → 6SEL 11:03
PROVIDERS: ADMIT Hospitalist; ATTEND Hospitalist
DX: R53.83 Other fatigue (principal); I10 Essential (primary) hypertension; R07.89 Other chest pain; E03.9 Hypothyroidism, unspecified; H40.9 Unspecified glaucoma; F41.9 Anxiety disorder, unspecified; E66.9 Obesity, unspecified; Z72.820 Sleep deprivation; Z79.899 Other long term (current) drug therapy; Z90.89 Acquired absence of other organs; Z90.49 Acquired absence of other specified parts of digestive tract
CPT/HCPCS: 36415; 71020; 71275; 78452; 80053; 82550; 82553; 83735; 83880; 84443; 84484; 85025; 85379; 85610; 85730; 93005; 93017; 93306; 96374; 99285

== ENCOUNTER 2018-06-12 19:03 | Inpatient (IN) | payer BC, MEDICARE ==
--- NOTE | 2018-06-12 19:29 | ED ---
General Adult HPI - General Chief complaint: Chest Pain Stated complaint: CHEST PAIN Time Seen by Provider: 06/12/18 19:12 Source: patient, RN notes reviewed, old records reviewed Mode of arrival: ambulatory Limitations: no limitations - History of Present Illness Initial comments: 87-year-old female presented for evaluation of elevated blood pressure. Patient states that her blood pressure was elevated, 195/100 at home. She did call her primary care physician instructed her to take an additional Norvasc. Patient states she took 10 mg of Norvasc today at 3 PM, usual dose is 5 mg Norvasc. She is also on Accupril. No recent changes in blood pressure medication. She developed some left arm pain which was concerning. No chest pain. No abdominal pain. She had some mild lightheadedness. She took 2 aspirin by her to arrival. No vomiting. No diaphoresis. No history of CAD. No history of CVA. - Related Data Home Medications Medication Instructions Recorded Confirmed Levothyroxine Sodium [Synthroid] 112 mcg PO DAILY 09/17/16 06/12/18 Quinapril HCl [Accupril] 40 mg PO DAILY 09/17/16 06/12/18 amLODIPine BESYLATE [Norvasc] 10 mg PO DAILY 09/17/16 06/12/18 Aspirin [Adult Low Dose Aspirin EC] 81 mg PO DAILY 06/12/18 06/12/18 Allergies Allergy/AdvReac Type Severity Reaction Status Date / Time No Known Allergies Allergy Verified 06/12/18 20:01 Review of Systems ROS Statement: Those systems with pertinent positive or pertinent negative responses have been documented in the HPI. ROS Other: All systems not noted in ROS Statement are negative. Past Medical History Past Medical History: Hypertension, Thyroid Disorder Additional Past Medical History / Comment(s): glaucoma History of Any Multi-Drug Resistant Organisms: None Reported Past Surgical History: Appendectomy, Cholecystectomy, Tonsillectomy Additional Past Surgical History / Comment(s): neck, thyoid Past Psychological History: No Psychological Hx Reported Smoking Status: Never smoker Past Alcohol Use History: None Reported Past Drug Use History: None Reported - Past Family History Mother Family Medical History: CVA/TIA Father Additional Family Medical History / Comment(s): Patient states father had history of "heart issues" and during heart operation. Brother(s) Family Medical History: No Reported History Sister(s) Family Medical History: No Reported History General Exam Limitations: no limitations General appearance: alert, in no apparent distress Head exam: Present: atraumatic, normocephalic Eye exam: Present: normal appearance, PERRL ENT exam: Present: normal exam Neck exam: Present: normal inspection. Absent: tenderness, meningismus Respiratory exam: Present: normal lung sounds bilaterally. Absent: respiratory distress, wheezes Cardiovascular Exam: Present: regular rate, normal rhythm GI/Abdominal exam: Present: soft. Absent: distended, tenderness, guarding Extremities exam: Present: normal inspection, normal capillary refill. Absent: pedal edema, calf tenderness Neurological exam: Present: alert, oriented X3, CN II-XII intact. Absent: motor sensory deficit Psychiatric exam: Present: normal affect, normal mood Skin exam: Present: warm, dry, intact. Absent: cyanosis, diaphoretic Course Vital Signs 06/12/18 06/12/18 19:06 19:40 Temperature 97.4 F L Pulse Rate 98 67 Respiratory 22 18 Rate Blood Pressure 156/85 130/70 O2 Sat by Pulse 97 97 Oximetry EKG Findings - EKG Comments: EKG Findings:: EKG: Normal sinus rhythm, rate of 68, AL interval 168, QRS duration 84, QTC 416, no ST segment elevation or depression Medical Decision Making - Medical Decision Making 87-year-old female presenting for evaluation of elevated blood pressure, concern for MA secondary to left arm pain. Patient denied central chest pain. EKG is normal sinus with no definitive signs of ischemia. Chest x-ray obtained , negative for acute carpal coronary disease. Patient has normal CBC, CMP does show hyponatremia with a sodium 123, no history of hyponatremia. Troponin is negative. Patient will be kept in observation, rule out cardiac ischemia, telemetry, repeat cardiac enzymes. Regarding hyponatremia, urinalysis, urine sodium, and TSH will be obtained, these are pending. Patient started on 75 mL normal saline per hour. - Lab Data Result diagrams: 06/12/18 19:35 06/12/18 19:35 Lab Results 06/12/18 06/12/18 06/12/18 Range/Units 19:35 19:35 19:35 WBC 6.4 (3.8-10.6) k/uL RBC 4.77 (3.80-5.40) m/uL Hgb 14.0 (11.4-16.0) gm/dL Hct 40.3 (34.0-46.0) % MCV 84.4 (80.0-100.0) fL MCH 29.4 (25.0-35.0) pg MCHC 34.9 (31.0-37.0) g/dL RDW 12.7 (11.5-15.5) % Plt Count 223 (150-450) k/uL Neutrophils % 60 % Lymphocytes % 24 % Monocytes % 9 % Eosinophils % 4 % Basophils % 0 % Neutrophils # 3.8 (1.3-7.7) k/uL Lymphocytes # 1.6 (1.0-4.8) k/uL Monocytes # 0.6 (0-1.0) k/uL Eosinophils # 0.2 (0-0.7) k/uL Basophils # 0.0 (0-0.2) k/uL PT (9.0-12.0) sec INR (<1.2) APTT (22.0-30.0) sec Sodium 123 L (137-145) mmol/L Potassium 4.3 (3.5-5.1) mmol/L Chloride 93 L (98-107) mmol/L Carbon Dioxide 22 (22-30) mmol/L Anion Gap 8 mmol/L BUN 16 (7-17) mg/dL Creatinine 0.65 (0.52-1.04) mg/dL Est GFR (CKD-EPI)AfAm >90 (>60 ml/min/1.73 sqM) Est GFR (CKD-EPI)NonAf 81 (>60 ml/min/1.73 sqM) Glucose 108 H (74-99) mg/dL Calcium 8.7 (8.4-10.2) mg/dL Magnesium 1.7 (1.6-2.3) mg/dL Total Bilirubin 0.5 (0.2-1.3) mg/dL AST 24 (14-36) U/L ALT 30 (9-52) U/L Alkaline Phosphatase 78 (38-126) U/L Total Creatine Kinase 68 (30-135) U/L CK-MB (CK-2) 1.3 (0.0-2.4) ng/mL CK-MB (CK-2) Rel Index 1.9 Troponin I <0.012 (0.000-0.034) ng/mL NT-Pro-B Natriuret Pep pg/mL Total Protein 5.9 L (6.3-8.2) g/dL Albumin 3.5 (3.5-5.0) g/dL 06/12/18 06/12/18 Range/Units 19:35 19:35 WBC (3.8-10.6) k/uL RBC (3.80-5.40) m/uL Hgb (11.4-16.0) gm/dL Hct (34.0-46.0) % MCV (80.0-100.0) fL MCH (25.0-35.0) pg MCHC (31.0-37.0) g/dL RDW (11.5-15.5) % Plt Count (150-450) k/uL Neutrophils % % Lymphocytes % % Monocytes % % Eosinophils % % Basophils % % Neutrophils # (1.3-7.7) k/uL Lymphocytes # (1.0-4.8) k/uL Monocytes # (0-1.0) k/uL Eosinophils # (0-0.7) k/uL Basophils # (0-0.2) k/uL PT 10.5 (9.0-12.0) sec INR 1.0 (<1.2) APTT 25.0 (22.0-30.0) sec Sodium (137-145) mmol/L Potassium (3.5-5.1) mmol/L Chloride (98-107) mmol/L Carbon Dioxide (22-30) mmol/L Anion Gap mmol/L BUN (7-17) mg/dL Creatinine (0.52-1.04) mg/dL Est GFR (CKD-EPI)AfAm (>60 ml/min/1.73 sqM) Est GFR (CKD-EPI)NonAf (>60 ml/min/1.73 sqM) Glucose (74-99) mg/dL Calcium (8.4-10.2) mg/dL Magnesium (1.6-2.3) mg/dL Total Bilirubin (0.2-1.3) mg/dL AST (14-36) U/L ALT (9-52) U/L Alkaline Phosphatase (38-126) U/L Total Creatine Kinase (30-135) U/L CK-MB (CK-2) (0.0-2.4) ng/mL CK-MB (CK-2) Rel Index Troponin I (0.000-0.034) ng/mL NT-Pro-B Natriuret Pep 144 pg/mL Total Protein (6.3-8.2) g/dL Albumin (3.5-5.0) g/dL Disposition Clinical Impression: Chest pain, Hyponatremia Disposition: ADMITTED IP TO THIS [facility] Condition: Stable Is patient prescribed a controlled substance at d/c from ED?: No Referrals: Roge Montenegro MD [Primary Care Provider] - 1-2 days Decision to Admit Reason: Admit from EC Decision Date: 06/12/18 Decision Time: 21:10
[2018-06-12 20:08] LABS: Basophils % (A) 0 %; Eosinophils # (A) 0.2 k/uL (0-0.7); Eosinophils % (A) 4 %; HCT 40.3 % (34.0-46.0); Lymphocytes # (A) 1.6 k/uL (1.0-4.8); Lymphocytes % (A) 24 %; MCH 29.4 pg (25.0-35.0); MCHC 34.9 g/dL (31.0-37.0); MCV 84.4 fL (80.0-100.0); Mean Platelet Volume 7.7; Monocytes # (A) 0.6 k/uL (0-1.0); Monocytes % (A) 9 %; Neutrophils # (A) 3.8 k/uL (1.3-7.7); Neutrophils % (A) 60 %; Platelet Count 223 k/uL (150-450); RBC 4.77 m/uL (3.80-5.40); RDW 12.7 % (11.5-15.5); WBC 6.4 k/uL (3.8-10.6)
[2018-06-12 20:18] LABS: ALT 30 U/L (9-52); AST 24 U/L (14-36); Albumin 3.5 g/dL (3.5-5.0); Alkaline Phosphatase 78 U/L (38-126); Anion Gap 8 mmol/L; Blood Urea Nitrogen 16 mg/dL (7-17); Calcium 8.7 mg/dL (8.4-10.2); Carbon Dioxide 22 mmol/L (22-30); Chloride 93 mmol/L (98-107); Glucose 108 mg/dL (74-99); Magnesium 1.7 mg/dL (1.6-2.3); Potassium 4.3 mmol/L (3.5-5.1); Prothrombin Time 10.5 sec (9.0-12.0); Sodium 123 mmol/L (137-145); Total Bilirubin 0.5 mg/dL (0.2-1.3); Total Protein 5.9 g/dL (6.3-8.2)
[2018-06-12 20:20] LABS: Creatine Kinase 68 U/L (30-135)
--- NOTE | 2018-06-12 20:21 | XR ---
EXAMINATION: XR chest 2V DATE AND TIME: 06/12/2018 7:56 PM CLINICAL INDICATION: PHH; Chest Pain TECHNIQUE: Departmental protocol COMPARISON: 03/23/2017 FINDINGS: The lungs are clear. The pleural spaces are negative. The cardiac silhouette is mildly enlarged. The aortic tortuosity is prominent, similar to the prior study. The skeletal structures and soft tissues are negative for acute findings. IMPRESSION: NO ACUTE PROCESS.
[2018-06-12 20:33] LABS: Creatine Kinase MB 1.3 ng/mL (0.0-2.4); Troponin I <0.012 ng/mL (0.000-0.034)
[2018-06-12] MEDS ORDERED: NALOXONE 0.4 MG/ML 1 ML VIAL IV PRN (21:05)
[2018-06-12] MEDS ORDERED: ACETAMINOPHEN TAB 325 MG TAB PO PRN (21:05)
[2018-06-12] MEDS: SODIUM CHLORIDE 0.9% 1,000 ML IV SCH (22:25)
[2018-06-13 00:20] LABS: Appearance,Urine Clear (Clear); Bilirubin,Urine Negative (Negative); Blood,Urine Negative (Negative); Color,Urine Light Yellow; Glucose,Urine (UA) Negative (Negative); Ketones,Urine Negative (Negative); Leukocyte Esterase,Urine Negative (Negative); Nitrite,Urine Negative (Negative); PH, Urine 6.5 (5.0-8.0); Protein,Urine Negative (Negative); Specific Gravity,Urine 1.004 (1.001-1.035); Urobilinogen,Urine <2.0 mg/dL (<2.0)
[2018-06-13 01:01] VITALS: BMI 31.6
[2018-06-13 02:00] LABS: Creatine Kinase 58 U/L (30-135)
[2018-06-13 02:10] LABS: Troponin I <0.012 ng/mL (0.000-0.034)
[2018-06-13] MEDS ORDERED: LEVOTHYROXINE 112 MCG TAB PO SCH (06:30)
[2018-06-13 07:45] LABS: Basophils # (A) 0.1 k/uL (0-0.2); Basophils % (A) 1 %; Eosinophils # (A) 0.3 k/uL (0-0.7); Eosinophils % (A) 5 %; HCT 43.4 % (34.0-46.0); HGB 14.8 gm/dL (11.4-16.0); Lymphocytes # (A) 1.6 k/uL (1.0-4.8); Lymphocytes % (A) 28 %; MCH 29.5 pg (25.0-35.0); MCHC 34.1 g/dL (31.0-37.0); MCV 86.5 fL (80.0-100.0); Mean Platelet Volume 6.8; Monocytes # (A) 0.6 k/uL (0-1.0); Monocytes % (A) 11 %; Neutrophils % (A) 52 %; Platelet Count 232 k/uL (150-450); RBC 5.02 m/uL (3.80-5.40); WBC 5.7 k/uL (3.8-10.6)
[2018-06-13 08:02] LABS: ALT 27 U/L (9-52); AST 26 U/L (14-36); Albumin 3.4 g/dL (3.5-5.0); Alkaline Phosphatase 71 U/L (38-126); Anion Gap 8 mmol/L; Blood Urea Nitrogen 12 mg/dL (7-17); Calcium 8.6 mg/dL (8.4-10.2); Carbon Dioxide 24 mmol/L (22-30); Chloride 96 mmol/L (98-107); Glucose 90 mg/dL (74-99); Potassium 4.6 mmol/L (3.5-5.1); Sodium 128 mmol/L (137-145); Total Bilirubin 0.7 mg/dL (0.2-1.3); Total Protein 5.9 g/dL (6.3-8.2)
[2018-06-13 08:44] LABS: Creatine Kinase 50 U/L (30-135)
[2018-06-13 08:55] LABS: Creatine Kinase MB 0.7 ng/mL (0.0-2.4)
[2018-06-13 08:57] LABS: Troponin I <0.012 ng/mL (0.000-0.034)
[2018-06-13] MEDS: ASPIRIN 81 MG PO SCH (09:20)
[2018-06-13] MEDS: amLODIPine 10 MG TAB PO SCH (09:20)
[2018-06-13] MEDS: SODIUM CHLORIDE 0.9% 1,000 ML IV SCH ×2 (09:21→22:55)
[2018-06-13] MEDS: LISINOPRIL 20 MG TAB PO SCH (12:35)
--- NOTE | 2018-06-13 13:19 | P.CRDCN ---
History of Present Illness Consult date: 06/13/18 Requesting physician: Berny Rosales Reason for Consult (text): chest pain Chief complaint: elevated blood pressure, dizziness, left arm pain History of present illness: This is a pleasant 87-year-old female patient with history of hypertension and hypothyroidism. Presented to the emergency department because of elevated blood pressure as well as some dizziness and left arm discomfort. EKG on admission showed sinus rhythm without evidence of acute ischemia. Chest x-ray showed no acute process. Laboratory values on admission showed a sodium of 123 , BUN of 16, creatinine 0.65, NT proBNP of 144, normal TSH and troponins negative 3. She did have some cardiac workup done in March 2017 including an echocardiogram that showed a normal LV systolic function with mild MR and a Lexiscan Cardiolite that showed no evidence of reversible ischemia. On examination, patient is resting comfortably in bed. He denies further complaints of dizziness, lightheadedness or left arm discomfort. She's had no complaints of shortness of breath, orthopnea or PND. She does have occasional lower extremity edema. Past Medical History Past Medical History: Hypertension, Thyroid Disorder Additional Past Medical History / Comment(s): glaucoma History of Any Multi-Drug Resistant Organisms: None Reported Past Surgical History: Appendectomy, Cholecystectomy, Tonsillectomy Additional Past Surgical History / Comment(s): neck, thyroid cancer with removal Past Psychological History: No Psychological Hx Reported Smoking Status: Never smoker Past Alcohol Use History: None Reported Past Drug Use History: None Reported - Past Family History Mother Family Medical History: CVA/TIA Father Additional Family Medical History / Comment(s): Patient states father had history of "heart issues" and during heart operation. Brother(s) Family Medical History: No Reported History Sister(s) Family Medical History: No Reported History Medications and Allergies Home Medications Medication Instructions Recorded Confirmed Type Levothyroxine Sodium [Synthroid] 112 mcg PO DAILY 09/17/16 06/12/18 History Quinapril HCl [Accupril] 40 mg PO DAILY 09/17/16 06/12/18 History amLODIPine BESYLATE [Norvasc] 10 mg PO DAILY 09/17/16 06/12/18 History Aspirin [Adult Low Dose Aspirin EC] 81 mg PO DAILY 06/12/18 06/12/18 History Allergies Allergy/AdvReac Type Severity Reaction Status Date / Time No Known Allergies Allergy Verified 06/12/18 20:01 Physical Exam Vitals: Vital Signs Temp Pulse Pulse Resp BP BP BP 06/13/18 12:00 68 17 152/74 06/13/18 08:15 98.2 F 67 18 140/72 06/13/18 04:00 97.6 F 64 15 165/77 06/13/18 00:00 97.1 F L 68 15 172/80 165/77 06/12/18 23:43 58 L 18 139/97 06/12/18 22:59 97.6 F 64 16 179/79 06/12/18 22:00 65 16 146/83 06/12/18 19:40 67 18 130/70 06/12/18 19:06 97.4 F L 98 22 156/85 Pulse Ox 06/13/18 12:00 96 06/13/18 08:15 97 06/13/18 04:00 96 06/13/18 00:00 96 06/12/18 23:43 95 06/12/18 22:59 97 06/12/18 22:00 96 06/12/18 19:40 97 06/12/18 19:06 97 Intake and Output 06/12/18 06/13/18 06/13/18 22:59 06:59 14:59 Intake Total 75 600 240 Balance 75 600 240 Intake: IV 75 600 Sodium Chloride 0.9% 1, 75 600 000 ml @ 75 mls/hr IV . [id number] [facility] Rx#:[id number] Oral 240 Other: Voiding Method Toilet Weight 78.471 kg 78.1 kg PHYSICAL EXAMINATION: HEENT: Head is atraumatic, normocephalic. Pupils equal, round. Neck is supple. There is no elevated jugular venous pressure. HEART EXAMINATION: Heart sounds regular, S1 and S2 with a systolic murmur at the base. CHEST EXAMINATION: Lungs are clear to auscultation and precussion. No chest wall tenderness is noted on palpation or with deep breathing. ABDOMEN: Soft, nontender. Bowel sounds are heard. No organomegaly noted. EXTREMITIES: 2+ peripheral pulses with no evidence of peripheral edema and no calf tenderness noted. NEUROLOGIC patient is awake, alert and oriented x3. . Results 06/13/18 06:42 06/13/18 06:42 Cardiac Enzymes 06/12/18 06/12/18 06/13/18 Range/Units 19:35 19:35 01:03 AST 24 (14-36) U/L CK-MB (CK-2) 1.3 1.0 (0.0-2.4) ng/mL Troponin I <0.012 <0.012 (0.000-0.034) ng/mL 06/13/18 06/13/18 Range/Units 06:42 06:42 AST 26 (14-36) U/L CK-MB (CK-2) 0.7 (0.0-2.4) ng/mL Troponin I <0.012 (0.000-0.034) ng/mL Coagulation 06/12/18 Range/Units 19:35 PT 10.5 (9.0-12.0) sec APTT 25.0 (22.0-30.0) sec CBC 06/12/18 06/13/18 Range/Units 19:35 06:42 WBC 6.4 5.7 (3.8-10.6) k/uL RBC 4.77 5.02 (3.80-5.40) m/uL Hgb 14.0 14.8 (11.4-16.0) gm/dL Hct 40.3 43.4 (34.0-46.0) % Plt Count 223 232 (150-450) k/uL Comprehensive Metabolic Panel 06/12/18 06/13/18 Range/Units 19:35 06:42 Sodium 123 L 128 L (137-145) mmol/L Potassium 4.3 4.6 (3.5-5.1) mmol/L Chloride 93 L 96 L (98-107) mmol/L Carbon Dioxide 22 24 (22-30) mmol/L BUN 16 12 (7-17) mg/dL Creatinine 0.65 0.60 (0.52-1.04) mg/dL Glucose 108 H 90 (74-99) mg/dL Calcium 8.7 8.6 (8.4-10.2) mg/dL AST 24 26 (14-36) U/L ALT 30 27 (9-52) U/L Alkaline Phosphatase 78 71 (38-126) U/L Total Protein 5.9 L 5.9 L (6.3-8.2) g/dL Albumin 3.5 3.4 L (3.5-5.0) g/dL Current Medications Generic Name Dose Route Start Last Admin Trade Name Freq PRN Reason Stop Dose Admin Acetaminophen 650 mg 06/12/18 21:05 06/13/18 05:03 Tylenol Tab PO 650 mg Q6HR PRN Administration Mild Pain or Fever > 100.5 Amlodipine Besylate 10 mg 06/13/18 09:00 06/13/18 09:20 Norvasc PO 10 mg DAILY LORNA Administration Aspirin 81 mg 06/13/18 09:00 06/13/18 09:20 Aspirin PO 81 mg DAILY LORNA Administration Sodium Chloride 1,000 mls @ 75 mls/hr 06/12/18 21:00 06/13/18 09:21 Saline 0.9% IV 75 mls/hr .[id number] LORNA Administration Levothyroxine Sodium 112 mcg 06/13/18 06:30 06/13/18 06:16 Synthroid PO 112 mcg DAILY@0630 LORNA Administration Lisinopril 40 mg 06/13/18 12:15 06/13/18 12:35 Zestril PO 40 mg DAILY LORNA Administration Naloxone HCl 0.2 mg 06/12/18 21:05 Narcan IV Q2M PRN Opioid Reversal Intake and Output 06/12/18 06/13/18 06/13/18 22:59 06:59 14:59 Intake Total 75 600 240 Balance 75 600 240 Intake: IV 75 600 Sodium Chloride 0.9% 1, 75 600 000 ml @ 75 mls/hr IV . [id number] [facility] Rx#:[id number] Oral 240 Other: Voiding Method Toilet Weight 78.471 kg 78.1 kg 06/13/18 06:42 06/13/18 06:42 EKG Interpretations (text) Sinus rhythm Assessment and Plan Assessment: #1 uncontrolled hypertension #2 hyponatremia, improving #3 symptoms of dizziness #4 systolic murmur #5 hypothyroidism, stable Plan: From cardiology perspective, we will obtain a 2-D echo with Doppler to assess for valvular abnormalities and to assess LV systolic function. Further recommendations to follow depending on results of echocardiogram. TUBE BLOWER note has been reviewed, I agree with a documented findings and plan of care. Patient was seen and examined.
--- NOTE | 2018-06-13 17:17 | ECHOF ---
Referral Reason:chest pain, systolic murmur MEASUREMENTS -------- HEIGHT: 157.5 cm WEIGHT: 78.0 kg BP: 152/74 RVIDd: 2.9 cm (< 3.3) IVSd: 0.9 cm (0.6 - 1.1) LVIDd: 4.0 cm (3.9 - 5.3) LVPWd: 0.9 cm (0.6 - 1.1) IVSs: 1.3 cm LVIDs: 2.9 cm LVPWs: 1.2 cm LA Diam: 3.3 cm (2.7 - 3.8) LAESV Index (A-L): 19.13 ml/m Ao Diam: 2.8 cm (2.0 - 3.7) AV Cusp: 1.7 cm (1.5 - 2.6) MV EXCURSION: 9.870 mm (> 18.000) MV EF SLOPE: 56 mm/s (70 - 150) EPSS: 0.5 cm MV E Chacho: 0.96 m/s MV DecT: 271 ms MV A Chacho: 1.17 m/s MV E/A Ratio: 0.82 AV maxP.25 mmHg AV meanP.80 mmHg RAP: 5.00 mmHg RVSP: 36.49 mmHg FINDINGS -------- Sinus rhythm. This was a technically good study. The left ventricular size is normal. Left ventricular wall thickness is normal. Overall left vent ricular systolic function is normal with, an EF between 55 - 60 %. The right ventricle is normal in size. Normal LA size by volume 22+/-6 ml/m2. The right atrium is normal in size. There is mild aortic valve sclerosis. There is mild aortic stenosis present. Peak/mean gradient a cross the Aortic Valve is 18.25mmHg / 8.80mmHg. Mild mitral annular calcification present. Mild mitral regurgitation is present. Mild tricuspid regurgitation present. There is mild pulmonary hypertension. The right ventricular systolic pressure, as measured by Doppler, is 36.49mmHg. There is no pulmonic regurgitation present. The aortic root size is normal. Normal inferior vena cava with normal inspiratory collapse consistent with estimated right atrial pre ssure of 5 mmHg. There is no pericardial effusion. CONCLUSIONS -------- 1. Sinus rhythm. 2. This was a technically good study. 3. The left ventricular size is normal. 4. Left ventricular wall thickness is normal. 5. Overall left ventricular systolic function is normal with, an EF between 55 - 60 %. 6. Normal LA size by volume 22+/-6 ml/m2. 7. There is mild aortic valve sclerosis. 8. There is mild aortic stenosis present. 9. Peak/mean gradient across the Aortic Valve is 18.25mmHg / 8.80mmHg. 10. Mild mitral annular calcification present. 11. Mild mitral regurgitation is present. 12. Mild tricuspid regurgitation present. 13. There is mild pulmonary hypertension. 14. There is no pulmonic regurgitation present. 15. The aortic root size is normal. 16. Normal inferior vena cava with normal inspiratory collapse consistent with estimated right atrial pressure of 5 mmHg. 17. There is no pericardial effusion. CONSTRUCTION ACCOUNTANT: Ericka Kirby RDCS
[2018-06-13] MEDS ORDERED: ALPRAZolam 0.25 MG TAB PO PRN (19:14)
[2018-06-13] MEDS ORDERED: CALCIUM CARBONATE 500 MG CHEWABLE PO PRN (19:14)
[2018-06-13] MEDS ORDERED: ONDANSETRON 4 MG/2 ML VIAL IVP PRN (19:14)
[2018-06-13] MEDS ORDERED: LACTULOSE 20 GM/30 ML CUP PO PRN (19:14)
[2018-06-13] MEDS ORDERED: MAGNESIUM HYDROXIDE 2,400 MG/10 ML CUP PO PRN (19:14)
--- NOTE | 2018-06-13 20:53 | HP ---
HISTORY AND PHYSICAL DATE OF ADMISSION: June 12, 2018. DATE OF SERVICE: June 13, 2018. PRESENTING COMPLAINT: Headache. HISTORY OF PRESENTING COMPLAINT: This is a very pleasant, 87-year-old patient of Dr. Montenegro. The patient has a history of hypertension, hypothyroid, sleep deprivation where she did state they do check the blood pressures every Friday. Last Friday when the blood pressure was taken, it was reading really high. She was told about 190/101 and they called her family doctor who increased the dose of Norvasc. The patient did notice that she was becoming a bit dizzy and a bit of a headache. Tired and run down. There is no chest pain, palpitation. Because of blood pressure is running high, she decided to finally come in. The patient has not been sleeping for a long time and often times sleeps only 2-4 hours every night, often waking frequently. Does not really take a nap in the daytime, often feels sleepy and is rather anxious, tired. The patient's family is present including her sister, her daughter and son-in-law, the patient who a year ago had been taking care of her ailing . Denies any cardiac history. No precordial chest pain. REVIEW OF SYSTEMS: CONSTITUTIONAL: Tired. HEENT: Dizziness. RESPIRATORY: None. CARDIOVASCULAR: None. GASTROINTESTINAL: None. GENITOURINARY none. MUSCULOSKELETAL, DERMATOLOGIC, HEMATOLOGIC, LYMPHATICS: None. NEUROLOGICAL: Not sleeping well. PSYCHIATRY: Anxious. PAST MEDICAL HISTORY: Hypertension. Hypothyroidism. Sleep deprived. PAST SURGICAL HISTORY: Appendectomy, cholecystectomy, tonsillectomy, thyroid cancer that was removed. SOCIAL HISTORY: Lives with her sister. No smoking, no alcohol. FAMILY HISTORY: Stroke. Father had heart disorder. HOME MEDICATIONS: 1. Alphagan 0.2% 1 drop to both eyes b.i.d. 2. Norvasc 10 mg a day. 3. Accupril 40 mg p.o. daily. 4. Synthroid 112 mcg a day. 5. Aspirin 81 mg a day. ALLERGIES: None. PHYSICAL EXAMINATION: VITAL SIGNS ON PRESENTATION: Temperature 97.4, pulse 98, respiratory 22, blood pressure is 156/85, later went to 179/79, pulse ox 97% on room air. GENERAL APPEARANCE: Well built, BMI 31.2. Sitting up tired-appearing. EYES: Pupils equal. Conjunctivae normal. HEENT: External appearance of nose and ears normal. Oral cavity normal. NECK: JVD not raised. Mass not palpable. RESPIRATORY: Effort normal. LUNGS: Clear. CARDIOVASCULAR: 1st and 2nd sounds normal. No edema. ABDOMEN: Soft, nontender. Liver and spleen not palpable. LYMPHATICS: No lymph nodes palpable in the neck and axilla. PSYCHIATRY: Alert and oriented x3. Mood and affect normal. NEUROLOGICAL: Pupils equal. Cranial nerves grossly intact. Power and sensation grossly intact. INVESTIGATIONS: White count 6.4, hemoglobin 14.0, sodium 123, potassium 4.3, BUN 16, creatinine 0.65. TSH 0.719. UA negative. EKG tracing personally reviewed by me shows normal sinus rhythm. Chest x-ray film personally reviewed by me shows some cardiomegaly, 2D echocardiogram, EF of 55-60 percent. ASSESSMENT: 1. Accelerated hypertension, causing headache. No other focal symptoms. 2. Hypothyroidism, possibly slight over replacement. TSH is on the lower side. Will need to scale back the dose of Synthroid to 200 mcg a day. 3. Chronic sleep deprivation idiopathic. 4. Anxiety not otherwise specified. 5. Obesity, BMI 31.5. 6. Hyponatremia. Sodium 123. PLAN: The patient is started on normal saline in the ER. Sodium has come up. The patient is counseled about the importance of getting a good sleep. The patient repeat blood pressure is looking better. We will add a sleeping pill at night for short term. Lovenox for DVT prophylaxis. The patient should be able to be discharged tomorrow. Copy to Dr. Montenegro. MMCARLOS MANUELL / NATALIN: [id number] /
[2018-06-13] MEDS ORDERED: TIMOLOL 0.5% OPHTH DROPS 5 ML BTL BOTH EYES SCH (21:00)
[2018-06-13] MEDS ORDERED: TEMAZEPAM 15 MG CAP PO SCH (21:00)
[2018-06-13] MEDS: BRIMONIDINE TARTRATE 0.2% DROPS 5 ML BTL BOTH EYES SCH (21:14)
[2018-06-13] MEDS: ENOXAPARIN 40 MG/0.4 ML SYRINGE SQ SCH (21:14)
[2018-06-14] MEDS ORDERED: LEVOTHYROXINE 100 MCG TAB PO SCH (07:42)
[2018-06-14] MEDS: BRIMONIDINE TARTRATE 0.2% DROPS 5 ML BTL BOTH EYES SCH (08:11)
[2018-06-14] MEDS: ENOXAPARIN 40 MG/0.4 ML SYRINGE SQ SCH ×2 (08:11→08:17)
[2018-06-14] MEDS: LISINOPRIL 20 MG TAB PO SCH (08:11)
[2018-06-14] MEDS: amLODIPine 10 MG TAB PO SCH (08:11)
[2018-06-14] MEDS: ASPIRIN 81 MG PO SCH (08:11)
[2018-06-14 12:34] VITALS: RESP 18
--- NOTE | 2018-06-14 13:06 | P.PN ---
Subjective Progress Note Date: 06/14/18 This is a pleasant 87-year-old female patient with history of hypertension and hypothyroidism. Presented to the emergency department because of elevated blood pressure as well as some dizziness and left arm discomfort. EKG on admission showed sinus rhythm without evidence of acute ischemia. Chest x-ray showed no acute process. Laboratory values on admission showed a sodium of 123 , BUN of 16, creatinine 0.65, NT proBNP of 144, normal TSH and troponins negative 3. She did have some cardiac workup done in March 2017 including an echocardiogram that showed a normal LV systolic function with mild MR and a Lexiscan Cardiolite that showed no evidence of reversible ischemia. On examination, patient is resting comfortably in bed. He denies further complaints of dizziness, lightheadedness or left arm discomfort. She's had no complaints of shortness of breath, orthopnea or PND. She does have occasional lower extremity edema. 06/14/18 Patient was seen and examined today. Overall she's feeling better. Verbalizes the desire to go home today. Blood pressure is much better controlled. 2-D echo with Doppler showed normal LV systolic function with ejection fraction between 55-60%, mild aortic valve sclerosis with mild aortic stenosis, mild mitral regurgitation, mild tricuspid regurgitation and mild pulmonary hypertension. Objective - Vital Signs Vital signs: Vital Signs Temp 97.6 F 06/14/18 12:25 Pulse 69 06/14/18 12:25 Resp 18 06/14/18 12:25 BP 132/79 06/14/18 12:25 Pulse Ox 99 06/14/18 12:25 Intake & Output 06/13/18 06/14/18 06/14/18 18:59 06:59 18:59 Intake Total 1245 600 Output Total 800 1250 Balance 445 -1250 600 Weight 77.9 kg Intake: IV 525 Sodium Chloride 0.9% 1, 525 000 ml @ 75 mls/hr IV . [id number] LORNA Rx#:[id number] Oral 720 600 Output: Urine 800 1250 Other: Voiding Method Toilet # Voids 2 2 - Exam PHYSICAL EXAMINATION: HEENT: Head is atraumatic, normocephalic. Pupils equal, round. Neck is supple. There is no elevated jugular venous pressure. HEART EXAMINATION: Heart sounds regular, S1 and S2 with a systolic murmur at the base. CHEST EXAMINATION: Lungs are clear to auscultation and precussion. No chest wall tenderness is noted on palpation or with deep breathing. ABDOMEN: Soft, nontender. Bowel sounds are heard. No organomegaly noted. EXTREMITIES: 2+ peripheral pulses with no evidence of peripheral edema and no calf tenderness noted. NEUROLOGIC patient is awake, alert and oriented x3. - Labs CBC & Chem 7: 06/13/18 06:42 06/13/18 06:42 Assessment and Plan Assessment: #1 hypertension #2 hyponatremia #3 symptoms of dizziness #4 systolic murmur, echocardiogram confirms mild aortic stenosis #5 hypothyroidism, stable Plan: From cardiology perspective, we will obtain a BMP today. Medications were reviewed and we will continue the same. We anticipate the patient to be discharged home soon. ECHOCARDIOGRAPHY TECHNOLOGIST note has been reviewed, I agree with a documented findings and plan of care. Patient was seen and examined.
[2018-06-14] MEDS: SODIUM CHLORIDE 0.9% 1,000 ML IV SCH (13:56)
[2018-06-14 16:10] VITALS: BP 145/69; PULSE 77; TEMP 97.1
[2018-06-15] MEDS ORDERED: LEVOTHYROXINE 100 MCG TAB PO SCH (06:30)
--- NOTE | 2018-06-15 07:37 | DS ---
DISCHARGE SUMMARY DATE OF ADMISSION: 06/12/2018 DATE OF DISCHARGE: 06/14/2018 FINAL DIAGNOSES: 1. Accelerated hypertension causing cephalgia. 2. 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 3. Chronic sleep deprivation from underlying anxiety. 4. Anxiety, not otherwise specified. 5. Obesity; body mass index 31.5. 6. Hyponatremia, likely hypo-osmolar, present on admission. HOSPITAL COURSE: This patient presented with blood pressure running high. The patient really chronically has not slept well. Did have a long talk with the patient and the family about lifestyle measures including mindfulness. Patient slept rather well and she stated this morning she slept for 8 hours which she has not done for the last 3 years. Patient's TSH was slightly on the lower side 0.79. Hence, I scaled back the dose of Synthroid, dose was adjusted. Care was discussed with the daughter at the bedside. Questions were answered. The patient doing much better. Patient did have a 2-D echocardiogram that showed preserved LV function. CONSULTATION: Dr. Nichole from Cardiology. Discussion and discharge planning more than 35 minutes. DISCHARGE MEDICATIONS: 1. Norvasc 10 mg in the morning. 2. Aspirin 81 mg a day. 3. Alphagan 0.2% 1 drop to both eyes b.i.d. 4. Synthroid 100 mcg a day, new dose. 5. Accupril 40 mg q.h.s. Follow up with Dr. Montenegro in 1 week. SHON / BIENVENIDO: [id number] /
== END 2018-06-14 16:25 | disposition home or self-care (01) | DRG 305 ==
LOC: EC 19:03 → 3SCARD 21:10
PROVIDERS: ADMIT Hospitalist; ATTEND Hospitalist
DX: I10 Essential (primary) hypertension (principal); E87.1 Hypo-osmolality and hyponatremia; R51 Headache; E03.9 Hypothyroidism, unspecified; E05.90 Thyrotoxicosis, unspecified without thyrotoxic crisis or storm; E66.9 Obesity, unspecified; F41.9 Anxiety disorder, unspecified; H40.9 Unspecified glaucoma; I27.20 Pulmonary hypertension, unspecified; Z68.31 Body mass index [BMI] 31.0-31.9, adult; Z72.820 Sleep deprivation; Z79.82 Long term (current) use of aspirin; Z79.890 Hormone replacement therapy; Z79.899 Other long term (current) drug therapy; Z82.3 Family history of stroke; Z82.49 Family history of ischemic heart disease and other diseases of the circulatory system; Z85.850 Personal history of malignant neoplasm of thyroid; R42 Dizziness and giddiness
CPT/HCPCS: 36415; 71046; 80053; 81003; 82550; 82553; 83735; 83880; 84300; 84443; 84484; 85025; 85610; 85730; 93005; 93306; 99285

== ENCOUNTER → 2018-08-03 | Outpatient (CLI) | payer MEDICARE | END | disposition home or self-care (01) | LOC: LABWHC1 10:45 | PROVIDERS: ATTEND Pediatrics | DX: E03.9 Hypothyroidism, unspecified (principal) | CPT/HCPCS: 36415; 84443 ==

== ENCOUNTER 2018-09-29 18:54 | Observation (INO) | payer MEDICARE ==
[2018-09-29] MEDS ORDERED: KETOROLAC 30 MG/ML 1 ML VIAL IVP STA (19:43)
[2018-09-29] MEDS ORDERED: NITROGLYCERIN OINT 1 INCH/GM PACKET TOPICAL STA (19:43)
--- NOTE | 2018-09-29 19:46 | ED ---
General Adult HPI - General Chief complaint: Chest Pain Stated complaint: Chest Pain Time Seen by Provider: 09/29/18 19:00 Source: patient, EMS, RN notes reviewed Mode of arrival: EMS - History of Present Illness Initial comments: This is a 88-year-old female presents emergency Department complaining of chest pain in the center of her chest per patient states as a squeezing sensation. Patient states it's been intermittent over the weekend worse last night. Patient states since a slight is been constant. Patient states it does not radiate anywhere she has no associated symptoms such as shortness of breath diaphoresis or any nausea. Patient states the regional refrigerated cdl truck driver gave her nitroglycerin but did not help the pain. Patient states she still has the pain at this time. Patient denies any episodes of syncope or near syncope. Patient denies any lightheadedness or dizziness. Patient denies any headache patient denies numbness weakness. Patient denies any swelling to the legs. Patient denies any abdominal pain patient denies any nausea vomiting diarrhea. Patient denies any recent fever chills or cough. - Related Data Home Medications Medication Instructions Recorded Confirmed amLODIPine BESYLATE [Norvasc] 10 mg PO DAILY 09/17/16 09/29/18 Aspirin [Adult Low Dose Aspirin EC] 81 mg PO DAILY 06/12/18 09/29/18 Multivitamins, Thera [Multivitamin 1 tab PO DAILY 09/29/18 09/29/18 (formulary)] Previous Rx's Medication Instructions Recorded Brimonidine Tartrate [Alphagan P 1 drops BOTH EYES BID ml 06/14/18 0.2% Ophth Soln] Levothyroxine Sodium [Synthroid] 100 mcg PO DAILY@0630 #30 tab 06/14/18 Quinapril HCl [Accupril] 40 mg PO HS #0 06/14/18 Allergies Allergy/AdvReac Type Severity Reaction Status Date / Time No Known Allergies Allergy Verified 09/29/18 20:21 Review of Systems ROS Statement: Those systems with pertinent positive or pertinent negative responses have been documented in the HPI. ROS Other: All systems not noted in ROS Statement are negative. Past Medical History Past Medical History: Hypertension, Thyroid Disorder Additional Past Medical History / Comment(s): glaucoma History of Any Multi-Drug Resistant Organisms: None Reported Past Surgical History: Appendectomy, Cholecystectomy, Tonsillectomy Additional Past Surgical History / Comment(s): neck, thyroid cancer with removal Past Psychological History: No Psychological Hx Reported Smoking Status: Never smoker Past Alcohol Use History: None Reported Past Drug Use History: None Reported - Past Family History Mother Family Medical History: CVA/TIA Father Additional Family Medical History / Comment(s): Patient states father had history of "heart issues" and during heart operation. Brother(s) Family Medical History: No Reported History Sister(s) Family Medical History: No Reported History General Exam - General Exam Comments Initial Comments: GENERAL: Patient is well-developed and well-nourished. Patient is nontoxic and well-h ydrated and is in mild distress. ENT: Neck is soft and supple. No significant lymphadenopathy is noted. Oropharynx is clear. Moist mucous membranes. Neck has full range of motion without eliciting any pain. EYES: The sclera were anicteric and conjunctiva were pink and moist. Extraocular mov ements were intact and pupils were equal round and reactive to light. Eyelids were unremarkable. PULMONARY: Unlabored respirations. Good breath sounds bilaterally. No audible rales rhonchi or wheezing was noted. CARDIOVASCULAR: There is a regular rate and rhythm without any murmurs gallops or rubs. ABDOMEN: Soft and nontender with normal bowel sounds. No palpable organomegaly was noted. There is no palpable pulsatile mass. SKIN: Skin is clear with no lesions or rashes and otherwise unremarkable. NEUROLOGIC: Patient is alert and oriented x3. Cranial nerves II through XII are grossly intact. Motor and sensory are also intact. Normal speech, volume and content. Symmetrical smile. MUSCULOSKELETAL: Normal extremities with adequate strength and full range of motion. No lower e xtremity swelling or edema. No calf tenderness. LYMPHATICS: No significant lymphadenopathy is noted PSYCHIATRIC: Normal psychiatric evaluation. Course Vital Signs 09/29/18 19:18 Pulse Rate 62 Respiratory 16 Rate Blood Pressure 137/80 O2 Sat by Pulse 99 Oximetry Medical Decision Making - Medical Decision Making EKG shows normal sinus rhythm at 64 bpm [place] interval is on a 58 QRSs 80 QT interval is 422 QTC is 435 per patient's EKG shows no ST segment elevation or depression or T wave abnormalities are noted Patient's chest x-ray shows no acute abnormality. Patient stated the Toradol helped her more than the nitroglycerin. I spoke with Dr. gutierrez content agreed to take the patient admitted the patient wrote admitting orders and consult cardiology - Lab Data Result diagrams: 09/29/18 19:31 09/29/18 19:31 Lab Results 09/29/18 09/29/18 09/29/18 Range/Units 19:31 19:31 19:31 WBC 7.6 (3.8-10.6) k/uL RBC 5.08 (3.80-5.40) m/uL Hgb 14.9 (11.4-16.0) gm/dL Hct 43.3 (34.0-46.0) % MCV 85.4 (80.0-100.0) fL MCH 29.3 (25.0-35.0) pg MCHC 34.3 (31.0-37.0) g/dL RDW 12.6 (11.5-15.5) % Plt Count 266 (150-450) k/uL Neutrophils % 64 % Lymphocytes % 20 % Monocytes % 8 % Eosinophils % 4 % Basophils % 1 % Neutrophils # 4.8 (1.3-7.7) k/uL Lymphocytes # 1.5 (1.0-4.8) k/uL Monocytes # 0.6 (0-1.0) k/uL Eosinophils # 0.3 (0-0.7) k/uL Basophils # 0.0 (0-0.2) k/uL PT 10.2 (9.0-12.0) sec INR 0.9 (<1.2) APTT 21.6 L (22.0-30.0) sec Sodium 129 L (137-145) mmol/L Potassium 5.9 H (3.5-5.1) mmol/L Chloride 97 L (98-107) mmol/L Carbon Dioxide 23 (22-30) mmol/L Anion Gap 9 mmol/L BUN 16 (7-17) mg/dL Creatinine 0.60 (0.52-1.04) mg/dL Est GFR (CKD-EPI)AfAm >90 (>60 ml/min/1.73 sqM) Est GFR (CKD-EPI)NonAf 83 (>60 ml/min/1.73 sqM) Glucose 94 (74-99) mg/dL Calcium 8.5 (8.4-10.2) mg/dL Magnesium 1.8 (1.6-2.3) mg/dL Total Bilirubin 1.3 (0.2-1.3) mg/dL AST 56 H (14-36) U/L ALT 12 (9-52) U/L Alkaline Phosphatase 72 (38-126) U/L Troponin I (0.000-0.034) ng/mL Total Protein 7.0 (6.3-8.2) g/dL Albumin 4.1 (3.5-5.0) g/dL 09/29/18 Range/Units 19:31 WBC (3.8-10.6) k/uL RBC (3.80-5.40) m/uL Hgb (11.4-16.0) gm/dL Hct (34.0-46.0) % MCV (80.0-100.0) fL MCH (25.0-35.0) pg MCHC (31.0-37.0) g/dL RDW (11.5-15.5) % Plt Count (150-450) k/uL Neutrophils % % Lymphocytes % % Monocytes % % Eosinophils % % Basophils % % Neutrophils # (1.3-7.7) k/uL Lymphocytes # (1.0-4.8) k/uL Monocytes # (0-1.0) k/uL Eosinophils # (0-0.7) k/uL Basophils # (0-0.2) k/uL PT (9.0-12.0) sec INR (<1.2) APTT (22.0-30.0) sec Sodium (137-145) mmol/L Potassium (3.5-5.1) mmol/L Chloride (98-107) mmol/L Carbon Dioxide (22-30) mmol/L Anion Gap mmol/L BUN (7-17) mg/dL Creatinine (0.52-1.04) mg/dL Est GFR (CKD-EPI)AfAm (>60 ml/min/1.73 sqM) Est GFR (CKD-EPI)NonAf (>60 ml/min/1.73 sqM) Glucose (74-99) mg/dL Calcium (8.4-10.2) mg/dL Magnesium (1.6-2.3) mg/dL Total Bilirubin (0.2-1.3) mg/dL AST (14-36) U/L ALT (9-52) U/L Alkaline Phosphatase (38-126) U/L Troponin I <0.012 (0.000-0.034) ng/mL Total Protein (6.3-8.2) g/dL Albumin (3.5-5.0) g/dL Disposition Clinical Impression: Chest pain Disposition: ADMITTED IP TO THIS HOSP Referrals: Roge Montenegro MD [Primary Care Provider] - 1-2 days Time of Disposition: 22:10
[2018-09-29 19:59] LABS: Basophils % (A) 1 %; Eosinophils # (A) 0.3 k/uL (0-0.7); Eosinophils % (A) 4 %; HCT 43.3 % (34.0-46.0); HGB 14.9 gm/dL (11.4-16.0); Lymphocytes # (A) 1.5 k/uL (1.0-4.8); Lymphocytes % (A) 20 %; MCH 29.3 pg (25.0-35.0); MCHC 34.3 g/dL (31.0-37.0); MCV 85.4 fL (80.0-100.0); Monocytes # (A) 0.6 k/uL (0-1.0); Monocytes % (A) 8 %; Neutrophils # (A) 4.8 k/uL (1.3-7.7); Neutrophils % (A) 64 %; Platelet Count 266 k/uL (150-450); RBC 5.08 m/uL (3.80-5.40); RDW 12.6 % (11.5-15.5); WBC 7.6 k/uL (3.8-10.6)
[2018-09-29 20:06] LABS: ALT 12 U/L (9-52); AST 56 U/L (14-36); Albumin 4.1 g/dL (3.5-5.0); Alkaline Phosphatase 72 U/L (38-126); Anion Gap 9 mmol/L; Blood Urea Nitrogen 16 mg/dL (7-17); Calcium 8.5 mg/dL (8.4-10.2); Carbon Dioxide 23 mmol/L (22-30); Chloride 97 mmol/L (98-107); Glucose 94 mg/dL (74-99); Magnesium 1.8 mg/dL (1.6-2.3); Sodium 129 mmol/L (137-145); Total Bilirubin 1.3 mg/dL (0.2-1.3)
[2018-09-29 20:08] LABS: Potassium 5.9 mmol/L (3.5-5.1)
[2018-09-29 20:33] LABS: INR 0.9 (<1.2); Prothrombin Time 10.2 sec (9.0-12.0)
[2018-09-29 20:36] LABS: Partial Thromboplastin Time 21.6 sec (22.0-30.0)
--- NOTE | 2018-09-29 20:51 | XR ---
EXAMINATION: XR chest 2V DATE AND TIME: 09/29/2018 8:01 PM CLINICAL INDICATION: PHH; Chest Pain TECHNIQUE: Departmental protocol COMPARISON: 06/12/2018 FINDINGS: The lungs are clear. The pleural spaces are negative. The cardiac silhouette is mildly enlarged. The ectasia of the thoracic aorta is redemonstrated. The skeletal structures and soft tissues are negative for acute findings. IMPRESSION: 1. NO ACUTE PROCESS. 2. MILDLY ENLARGED CARDIAC SILHOUETTE. 3. PROMINENTLY ECTATIC THORACIC AORTA.
[2018-09-29] MEDS ORDERED: MORPHINE SULFATE 2 MG/ML SYRINGE IVP STA (21:53)
[2018-09-29] MEDS ORDERED: NITROGLYCERIN SL TABS 0.4 MG TAB SUBLINGUAL PRN (22:11)
[2018-09-30] MEDS: NITROGLYCERIN OINT 1 INCH/GM PACKET TOPICAL SCH ×2 (00:39→06:32)
[2018-09-30] MEDS: LEVOTHYROXINE 100 MCG TAB PO SCH (06:31)
[2018-09-30 07:31] LABS: Cholesterol 172 mg/dL (<200); HDL Cholesterol 49 mg/dL (40-60); LDL Cholesterol,Calculated 99 mg/dL (0-99); Triglycerides 118 mg/dL (<150)
[2018-09-30] MEDS ORDERED: IBUPROFEN 600 MG TAB PO STA (08:10)
[2018-09-30] MEDS: amLODIPine 10 MG TAB PO SCH (08:21)
[2018-09-30] MEDS ORDERED: ASPIRIN 325 MG TAB PO SCH (09:00)
[2018-09-30 09:50] VITALS: BMI 30.9
--- NOTE | 2018-09-30 10:20 | P.CRDCN ---
History of Present Illness History of present illness: This is a pleasant 88 showed female past medical history significant for hypertension and hypothyroidism. She denies history of coronary artery disease and does not follow with a nutrition internship for any reason. We've been asked to see her in consultation secondary to chest discomfort. She states 2 days ago she fell out of bed, there was no loss of consciousness. She denies having any symptoms of dizziness, palpitations, chest pain, shortness of breath or nausea associated with the following with a simple slip and fall. Since that time she has noticed a tight squeezing sensation that starts in the midsternal region and radiates throughout her thorax. This pain is worse when she coughs however has no association with deep inspiration. The pain is mildly reproducible on palpation and described as an achy sensation. The pain has essentially been constant for 2 days however there are episodes of increasing intensity when she coughs or with certain movements of her upper body. She denies radiation to the arm, back, neck or jaw. She denies associated shortness of breath, weakness, nausea, vomiting, diaphoresis or palpitations. She states she was recently admitted into the hospital in June and at that time was told she had low sodium at home to increase her electrolyte intake. She states since that time she has been eating one banana per day as well as adding Gatorade to her water. She also states she has had increased nasal drainage and cough for the previous couple of weeks. Upon arrival of EMS to home she was given nitroglycerin which did not relieve her symptoms. She came to the emergency department she was given Toradol and this did diminish her pain. EKG reveals sinus mechanism with no acute ST or T wave abnormalities noted. Chest x-ray is negative for an acute cardiopulmonary process. Laboratory data reviewed, WBC 7.6, hemoglobin 14.9, platelets 266, sodium 129, potassium 5.9, creatinine 0.6, magnesium 1.8, cardiac enzymes negative 3, LDL 99, HDL 49. Most recent stress test and 2017 revealed no evidence of reversible cardiac isc hemia. Most recent echocardiogram obtained June 2018 reveals preserved LV systolic function with ejection fraction 55-60%, mild aortic stenosis with a mean gradient of 8 mmHg, mild mitral regurgitation, mild tricuspid regurgitation and mild pulmonary hypertension with an RVSP of 36 mmHg. At the time of my exam: CONSTITUTIONAL: Denies fever. Denies chills. EYES: Denies blurred vision. Denies vision changes. Denies eye pain. EARS, NOSE, MOUTH & THROAT: Denies headache. Denies sore throat. Denies ear pain. CARDIOVASCULAR: Complains of pleuritic chest pain. Denies shortness of breath. Denies orthopnea. Denies PND. Denies palpitations. RESPIRATORY: Complains of cough. GASTROINTESTINAL: Denies abdominal pain. Denies diarrhea. Denies constipation. Denies nausea. Denies vomiting. MUSCULOSKELETAL: Denies myalgias. INTEGUMENTARY: Denies pruitis. Denies rash. NEUROLOGIC: Denies numbness. Denies tingling. Denies weakness. PSYCHIATRIC: Denies anxiety. Denies depression. ENDOCRINE: Denies fatigue. Denies weight change. Denies polydipsia. Denies polyurina. GENITOURINARY: Denies burning, hematuria or urgency with micturation. HEMATOLOGIC: Denies history of anemia. Denies bleeding. GENERAL: This is a 88-year-old female in no apparent distress at the time of my examination. HEENT: Head is atraumatic, normocephalic. Pupils are equal, round. Sclerae anicteric. Conjunctivae are clear. Mucous membranes of the mouth are moist. Neck is supple. There is no jugular venous distention. No carotid bruit is heard. LUNGS: Clear to auscultation no wheezes, rales or rhonchi. Mild chest t enderness on palpation in the midsternal region. HEART: Regular rate and rhythm with faint systolic ejection murmur at the base, no rubs or gallops. S1 and S2 heard. ABDOMEN: Soft, nontender. Bowel sounds are heard. No organomegaly noted. EXTREMITIES: No evidence of peripheral edema and no calf tenderness noted. VASCULAR: Radial and dorsalis pedis pulses palpated, no evidence of clubbing. NEUROLOGIC: Patient is awake, alert and oriented x3. ASSESSMENT Pleuritic chest pain, an acute coronary event has been ruled out. Hyperkalemia Hyponatremia Hypertension Valvular heart disease. Aortic stenosis, mitral regurgitation and tricuspid regurgitation. PLAN Patient just had an echocardiogram in June we will obtain a limited echo to assess for a pericardial effusion. Check CRP, ESR, repeat potassium and d-dimer. Obtain rib xray. Given ibuprofen 600 mg x1 now for ongoing pain. Hold ROSE inhibitor for hyperkalemia, last dose was last evening. Discontinue nitroglycerin. Thank you kindly for this consultation. Nurse Practitioner note has been reviewed, I agree with a documented findings and plan of care. Patient was seen and examined. Past Medical History Past Medical History: Hypertension, Pneumonia, Thyroid Disorder Additional Past Medical History / Comment(s): Thyroid cancer with surgery/radiation x1, chronic cough, bronchitis, pleurisy, insomnia, bilateral eye glaucoma. History of Any Multi-Drug Resistant Organisms: None Reported Past Surgical History: Appendectomy, Cholecystectomy, Tonsillectomy Additional Past Surgical History / Comment(s): Thyroidectomy with lymph nodes removed, colonoscopy Past Anesthesia/Blood Transfusion Reactions: No Reported Reaction Smoking Status: Never smoker - Past Family History Mother Family Medical History: CVA/TIA Additional Family Medical History / Comment(s): Mother had a CVA at the age of 75yrs and lived to be in her 80s Father Additional Family Medical History / Comment(s): Patient states father had history of "heart issues" and during heart operation. Brother(s) Family Medical History: No Reported History Sister(s) Family Medical History: No Reported History Medications and Allergies Home Medications Medication Instructions Recorded Confirmed Type amLODIPine BESYLATE [Norvasc] 10 mg PO DAILY 09/17/16 09/29/18 History Aspirin [Adult Low Dose Aspirin EC] 81 mg PO DAILY 06/12/18 09/29/18 History Brimonidine Tartrate [Alphagan P 1 drops BOTH EYES BID ml 06/14/18 09/29/18 Rx 0.2% Ophth Soln] Levothyroxine Sodium [Synthroid] 100 mcg PO DAILY@0630 #30 tab 06/14/18 09/29/18 Rx Quinapril HCl [Accupril] 40 mg PO HS #0 06/14/18 09/29/18 Rx Multivitamins, Thera [Multivitamin 1 tab PO DAILY 09/29/18 09/29/18 History (formulary)] Allergies Allergy/AdvReac Type Severity Reaction Status Date / Time No Known Allergies Allergy Verified 09/29/18 20:21 Physical Exam Vitals: Vital Signs Temp Pulse Resp BP Pulse Ox 09/30/18 09:00 66 18 156/86 100 09/30/18 07:42 70 18 158/86 100 09/30/18 06:35 58 L 18 115/45 98 09/29/18 23:50 65 13 143/97 09/29/18 23:10 64 16 150/72 99 09/29/18 22:50 56 L 8 L 152/72 99 09/29/18 22:40 61 13 140/71 99 09/29/18 22:20 57 L 9 L 143/81 99 09/29/18 22:14 98.4 F 09/29/18 22:10 62 17 156/82 98 09/29/18 21:50 134/72 09/29/18 21:40 60 15 122/76 96 09/29/18 21:20 59 L 14 128/71 100 09/29/18 21:10 57 L 16 129/95 99 09/29/18 20:50 58 L 14 128/77 100 09/29/18 20:40 58 L 12 118/81 99 09/29/18 20:20 59 L 9 L 129/71 100 09/29/18 20:10 58 L 13 127/69 100 09/29/18 19:50 60 16 130/73 98 09/29/18 19:40 63 13 125/68 99 09/29/18 19:30 63 12 137/80 98 09/29/18 19:18 98.2 F 62 16 137/80 99 09/29/18 19:16 23 Intake and Output 09/29/18 09/30/18 09/30/18 22:59 06:59 14:59 Other: Weight 76.657 kg Results 09/29/18 19:31 09/30/18 10:59 Cardiac Enzymes 09/29/18 09/29/18 09/30/18 Range/Units 19:31 19:31 02:14 AST 56 H (14-36) U/L Troponin I <0.012 <0.012 (0.000-0.034) ng/mL 09/30/18 Range/Units 06:55 AST (14-36) U/L Troponin I <0.012 (0.000-0.034) ng/mL Coagulation 09/29/18 Range/Units 19:31 PT 10.2 (9.0-12.0) sec APTT 21.6 L (22.0-30.0) sec Lipids 09/30/18 Range/Units 06:55 Triglycerides 118 (<150) mg/dL Cholesterol 172 (<200) mg/dL HDL Cholesterol 49 (40-60) mg/dL CBC 09/29/18 Range/Units 19:31 WBC 7.6 (3.8-10.6) k/uL RBC 5.08 (3.80-5.40) m/uL Hgb 14.9 (11.4-16.0) gm/dL Hct 43.3 (34.0-46.0) % Plt Count 266 (150-450) k/uL Comprehensive Metabolic Panel 09/29/18 Range/Units 19:31 Sodium 129 L (137-145) mmol/L Potassium 5.9 H (3.5-5.1) mmol/L Chloride 97 L (98-107) mmol/L Carbon Dioxide 23 (22-30) mmol/L BUN 16 (7-17) mg/dL Creatinine 0.60 (0.52-1.04) mg/dL Glucose 94 (74-99) mg/dL Calcium 8.5 (8.4-10.2) mg/dL AST 56 H (14-36) U/L ALT 12 (9-52) U/L Alkaline Phosphatase 72 (38-126) U/L Total Protein 7.0 (6.3-8.2) g/dL Albumin 4.1 (3.5-5.0) g/dL Current Medications Generic Name Dose Route Start Last Admin Trade Name Freq PRN Reason Stop Dose Admin Amlodipine Besylate 10 mg 09/30/18 09:00 09/30/18 08:21 Norvasc PO 10 mg DAILY [facility]ORNA Administration Aspirin 81 mg 09/30/18 09:00 Aspirin PO DAILY [facility] Levothyroxine Sodium 100 mcg 09/30/18 06:30 09/30/18 06:31 Synthroid PO 100 mcg DAILY@0630 [facility] Administration Nitroglycerin 0.4 mg 09/29/18 22:11 Nitrostat SUBLINGUAL Q5M PRN Chest Pain Intake and Output 09/29/18 09/30/18 09/30/18 22:59 06:59 14:59 Other: Weight 76.657 kg 09/29/18 19:31 09/29/18 19:31
[2018-09-30] MEDS: ASPIRIN 81 MG PO SCH (10:24)
--- NOTE | 2018-09-30 10:43 | XR ---
EXAMINATION TYPE: XR ribs bilateral DATE OF EXAM: 09/30/2018 CLINICAL HISTORY: Pain, Fall Four views of the bilateral ribs fail demonstrate evidence for displaced rib fracture or secondary si gn of rib fracture. Visualized lungs are clear. No evidence for pneumothorax. IMPRESSION: No displaced rib fractures seen. ICD 10 NO FRACTURE, INITIAL EVALUATION
[2018-09-30 11:54] LABS: C Reactive Protein 6.5 mg/L (<10.0); Potassium 4.9 mmol/L (3.5-5.1)
[2018-09-30] MEDS ORDERED: KETOROLAC 30 MG/ML 1 ML VIAL IVP STA (13:19)
[2018-09-30 13:20] LABS: Anion Gap 9 mmol/L; Blood Urea Nitrogen 18 mg/dL (7-17); Carbon Dioxide 21 mmol/L (22-30); Chloride 96 mmol/L (98-107); Glucose 112 mg/dL (74-99); Sodium 126 mmol/L (137-145)
--- NOTE | 2018-09-30 15:19 | CT ---
CT CHEST FOR PULMONARY EMBOLISM. EXAMINATION TYPE: CT chest angio for PE DATE OF EXAM: 09/30/2018 INDICATION: PE, chest pain CT DLP: 240.9 mGycm, Automated exposure control for dose reduction was used. CONTRAST: Patient injected with 100 ml mL of Isovue 370. COMPARISON: None TECHNIQUE: CT of the chest is performed on a spiral scan at 2 mm thick sections. Study is performed with intravenous contrast timed for evaluation for pulmonary embolism. This will limit additional po rtions of the evaluation. 3-D MIP images reconstructed by the technologist are reviewed on the compu ter in the coronal and sagittal planes. FINDINGS: No persistent filling defects are evident to suggest an acute pulmonary embolism. No mediastinal or hilar adenopathy enlarged by CT criteria is evident. The ascending aorta diameter at the level of the main pulmonary artery is 3.3 cm. The main pulmonary artery diameter at the bifur cation is 3.0 cm. Lung windows are clear. There is a small to moderate size hiatal hernia present. Limited CT section through the upper abdomen. There may be some mild thickening of the left adrenal g land. IMPRESSIONS: 1. No acute pulmonary embolism. 2. Small to moderate sized hiatal hernia
--- NOTE | 2018-09-30 17:14 | ECHOF ---
Referral Reason:assess for pleural fluid, pericarditis MEASUREMENTS -------- HEIGHT: 157.5 cm WEIGHT: 76.7 kg BP: 158/86 IVSd: 0.9 cm (0.6 - 1.1) LVIDd: 3.4 cm (3.9 - 5.3) LVPWd: 0.8 cm (0.6 - 1.1) IVSs: 1.1 cm LVIDs: 2.1 cm LVPWs: 1.3 cm RAP: 5.00 mmHg RVSP: 12.51 mmHg FINDINGS -------- Sinus rhythm. Limited Study Overall left ventricular systolic function is normal with, an EF between 55 - 60 %. There is no pericardial effusion. CONCLUSIONS -------- 1. Sinus rhythm. 2. Limited Study 3. Overall left ventricular systolic function is normal with, an EF between 55 - 60 %. 4. There is no pericardial effusion. OXYGEN SYSTEM TESTER: Gretta Vargas RDCS
--- NOTE | 2018-09-30 17:26 | P.HPIM ---
History of Present Illness H&P Date: 09/30/18 Chief Complaint: Chest pain Patient is a 88-year-old female With a known history of hypertension, hypothyroidism and chronic pleurisy came to the ER with complaints of chest pain mainly left retrosternal squeezing type worsens with deep breathing pleuritic chest pain for the past 2 days. Patient says that she slipped and fell about 3 days ago and started having pain the next day. Denied any radiation of the pain. No associated shortness of breath. No sweating. No loss of consciousness. No dizziness or lightheadedness. Pain gets worse when she coughs and takes a deep breath. Denied any leg swelling. Pain has been constant for the past 2 days which made her to come to the hospital. Denied any pain with deep palpation. No nausea vomiting or abdominal pain. No diarrhea. No recent illnesses. She states she was recently admitted into the hospital in June and at that time was told she had low sodium at home to increase her electrolyte intake. Patient does drink plenty of water at home. Patient was given a dose of Toradol in the ER which seem to her pain. EKG showed normal sinus rhythm with no ST-T wave changes Chest x-ray showed no acute cardio pulmonary process. Mildly enlarged cardiac silhouette Prominently ectatic thoracic aorta Sodium 129, d-dimer 1.03, potassium 5.9, creatinine 0.6, magnesium 1.[address] angiogram of the chest showed no pulmonary embolism. X-ray rib showed no evidence of fracture. TSH level in June 2018 was 0.719 Review of Systems Constitutional: Patient denies any fever or chills . No generalized weakness or weight loss. Abdomen: Patient denied nausea vomiting and diarrhea and abdominal pain. Cardiovascular: Patient does have pleuritic chest pain, squeezing type, no short of breath no palpitations. Respiratory: patient denied any cough is from production. No shortness of breath Neurologic: Patient denied any numbness or tingling headache. Musculoskeletal: Patient denies any complaints of joint swelling or deformity. Skin: Negative Psychiatric: Negative Endocrine: No heat or cold intolerance. No recent weight gain. Genitourinary: No dysuria or hematuria. All other 14 point ROS negative except the above Past Medical History Past Medical History: Hypertension, Pneumonia, Thyroid Disorder Additional Past Medical History / Comment(s): Thyroid cancer with lam rgery/radiation x1, chronic cough, bronchitis, pleurisy, insomnia, bilateral eye glaucoma. History of Any Multi-Drug Resistant Organisms: None Reported Past Surgical History: Appendectomy, Cholecystectomy, Tonsillectomy Additional Past Surgical History / Comment(s): Thyroidectomy with lymph nodes removed, colonoscopy Past Anesthesia/Blood Transfusion Reactions: No Reported Reaction Smoking Status: Never smoker - Past Family History Mother Family Medical History: CVA/TIA Additional Family Medical History / Comment(s): Mother had a CVA at the age of 75yrs and lived to be in her 80s Father Additional Family Medical History / Comment(s): Patient states father had history of "heart issues" and during heart operation. Brother(s) Family Medical History: No Reported History Sister(s) Family Medical History: No Reported History Medications and Allergies Home Medications Medication Instructions Recorded Confirmed Type amLODIPine BESYLATE [Norvasc] 10 mg PO DAILY 09/17/16 09/29/18 History Aspirin [Adult Low Dose Aspirin EC] 81 mg PO DAILY 06/12/18 09/29/18 History Brimonidine Tartrate [Alphagan P 1 drops BOTH EYES BID ml 06/14/18 09/29/18 Rx 0.2% Ophth Soln] Levothyroxine Sodium [Synthroid] 100 mcg PO DAILY@0630 #30 tab 06/14/18 09/29/18 Rx Quinapril HCl [Accupril] 40 mg PO HS #0 06/14/18 09/29/18 Rx Multivitamins, Thera [Multivitamin 1 tab PO DAILY 09/29/18 09/29/18 History (formulary)] Allergies Allergy/AdvReac Type Severity Reaction Status Date / Time No Known Allergies Allergy Verified 09/29/18 20:21 Physical Exam Vitals: Vital Signs Temp Pulse Resp BP Pulse Ox 09/30/18 11:55 82 18 123/86 100 09/30/18 10:40 61 18 123/96 100 09/30/18 09:00 66 18 156/86 100 09/30/18 07:42 70 18 158/86 100 09/30/18 06:35 58 L 18 115/45 98 09/29/18 23:50 65 13 143/97 09/29/18 23:10 64 16 150/72 99 09/29/18 22:50 56 L 8 L 152/72 99 09/29/18 22:40 61 13 140/71 99 09/29/18 22:20 57 L 9 L 143/81 99 09/29/18 22:14 98.4 F 09/29/18 22:10 62 17 156/82 98 09/29/18 21:50 134/72 09/29/18 21:40 60 15 122/76 96 09/29/18 21:20 59 L 14 128/71 100 09/29/18 21:10 57 L 16 129/95 99 09/29/18 20:50 58 L 14 128/77 100 09/29/18 20:40 58 L 12 118/81 99 09/29/18 20:20 59 L 9 L 129/71 100 09/29/18 20:10 58 L 13 127/69 100 09/29/18 19:50 60 16 130/73 98 09/29/18 19:40 63 13 125/68 99 09/29/18 19:30 63 12 137/80 98 09/29/18 19:18 98.2 F 62 16 137/80 99 09/29/18 19:16 23 Intake and Output 09/29/18 09/30/18 09/30/18 22:59 06:59 14:59 Other: Weight 76.657 kg PHYSICAL EXAMINATION: Patient is lying in the bed comfortably, no acute distress, awake alert and oriented.. HEENT: Normocephalic. Neck is supple. Pupils reactive. Nostrils clear. Oral cavity is moist. Ears reveal no drainage. Neck reveals no JVD, carotid bruits, or thyromegaly. CHEST EXAMINATION: Trachea is central. Symmetrical expansion. Lung king clear to auscultation and percussion. CARDIAC: Normal S1, S2 with no gallops. No murmurs ABDOMEN: Soft. Bowel sounds normal. No organomegaly. No abdominal bruits. Extremities: reveal no edema. No clubbing or cyanosis Neurologically awake, alert, oriented x3 with well-coordinated movements. No focal deficits noted Skin: No rash or skin lesions. Psychiatric: Coperative. Nonsuicidal Musculoskeletal: No joint swelling or deformity. Normal range of motion. Results CBC & Chem 7: 09/29/18 19:31 09/30/18 10:59 Labs: Abnormal Lab Results - Last 24 Hours (Table) 05/28/19 05/28/19 05/29/19 Range/Units 19:31 19:31 10:59 APTT 21.6 L (22.0-30.0) sec D-Dimer 1.03 H (<0.60) mg/L FEU Sodium 129 L (137-145) mmol/L Potassium 5.9 H (3.5-5.1) mmol/L Chloride 97 L (98-107) mmol/L AST 56 H (14-36) U/L Thrombosis Risk Factor Assmnt - DVT/VTE Prophylaxis DVT/VTE Prophylaxis: Pharmacologic Prophylaxis ordered - Choose All That Apply Any of the Below Risk Factors Present?: Yes Each Factor Represents 1 point: Obesity (BMI >25) Other Risk Factors: Yes Each Risk Factor Represents 2 Points: Malignancy Each Risk Factor Represents 3 Points: Age 75 years or older Other congenital or acquired thrombophilia - If yes, enter type in comment: No Thrombosis Risk Factor Assessment Total Risk Factor Score: 6 Thrombosis Risk Factor Assessment Level: High Risk Assessment and Plan Assessment: Pleuritic chest pain likely due to lung contusion with possible atelectasis/history of recent fall 3 days back. Ruled out ACS. Slightly elevated d-dimer. No evidence of pulmonary embolism in the CT angiogram of the chest. Hyponatremia. Rule out SIADH Hyperkalemia 5.9 Valvular heart disease with aortic stenosis, mitral regurgitation and tricuspid regurgitation Hypothyroidism Hypertension Plan: Patient be continued on telemetry monitoring. Serial EKG and troponin 3 negative. Cardiology has seen the patient and repeat limited echocardiogram was ordered. No evidence of pulmonary embolism. Continue with pain management with Toradol IV. Patient is still hyponatremic. Will get urine and serum hospitality, urine sodium, protein, creatinine levels. Nephrology service will be consulted. Hold ROSE inhibitor due to hyperkalemia. Further recommendations based on the clinical course. Discussed with her daughter at bedside in detail. Time with Patient: Greater than 30
[2018-09-30 19:10] LABS: Creatinine,Urine Random 21.2 mg/dL
[2018-09-30] MEDS: KETOROLAC 30 MG/ML 1 ML VIAL IVP PRN (21:00)
[2018-09-30] MEDS: BRIMONIDINE TARTRATE 0.2% DROPS 5 ML BTL BOTH EYES SCH (21:04)
[2018-10-01] MEDS: LEVOTHYROXINE 100 MCG TAB PO SCH (04:56)
[2018-10-01] MEDS ORDERED: PANTOPRAZOLE 40 MG TABLET PO SCH (08:30)
[2018-10-01 08:34] LABS: Anion Gap 8 mmol/L; Blood Urea Nitrogen 14 mg/dL (7-17); Carbon Dioxide 23 mmol/L (22-30); Chloride 100 mmol/L (98-107); Glucose 121 mg/dL (74-99); Magnesium 1.8 mg/dL (1.6-2.3); Potassium 4.5 mmol/L (3.5-5.1); Sodium 131 mmol/L (137-145)
[2018-10-01 08:40] VITALS: RESP 16
--- NOTE | 2018-10-01 08:40 | P.NPCON ---
History of Present Illness - Reason for Consult hyponatremia - History of Present Illness Reason for consultation: Hyponatremia History of present illness: Patient is a 88-year-old female seen in renal consultation for hyponatremia. Patient's sodium level was 129 on admission and was down to 126 as of yesterday. Patient has history of hyponatremia as her sodium level was in the range of 123-128 in June 2018. Patient denies taking any thiazide diuretics. She denies any history of malignancy. However she does admit to drinking about 8-10 glasses of water daily to keep herself hydrated. Her oral intake has been fair. No vomiting or diarrhea. Patient presented to the hospital with squeezing chest discomfort in the midsternum. Patient had a CTA done on September 30 which revealed no evidence of PE. Echocardiogram revealed no evidence of pericardial effusion. Ejection fraction was preserved. Patient denies any history of kidney disease. GFR is currently at baseline. Potassium level was high on admission at 5.9. Lisinopril was held. Potassium level was down to 4.9 as of yesterday. She is also receiving Toradol for pain. No fever or chills. No cough. Vital signs are stable. General: The patient appeared well nourished and normally developed. HEENT: Head exam is unremarkable. Neck is without jugular venous distension. LUNGS: Lungs are clear to auscultation and percussion. Breath sounds decreased. HEART: Rate and Rhythm are regular. First and second heart sounds normal. No murmurs, rubs or gallops. ABDOMEN: Abdominal exam reveals normal bowel sounds. Non-tender and non- distended. No evidence of peritonitis. EXTREMITITES: No clubbing, cyanosis, or edema. Past Medical History Past Medical History: Hypertension, Pneumonia, Thyroid Disorder Additional Past Medical History / Comment(s): Thyroid cancer with surgery/radiation x1, chronic cough, bronchitis, pleurisy, insomnia, bilateral eye glaucoma. History of Any Multi-Drug Resistant Organisms: None Reported Past Surgical History: Appendectomy, Cholecystectomy, Tonsillectomy Additional Past Surgical History / Comment(s): Thyroidectomy with lymph nodes removed, colonoscopy Past Anesthesia/Blood Transfusion Reactions: No Reported Reaction Smoking Status: Never smoker - Past Family History Mother Family Medical History: CVA/TIA Additional Family Medical History / Comment(s): Mother had a CVA at the age of 75yrs and lived to be in her 80s Father Additional Family Medical History / Comment(s): Patient states father had history of "heart issues" and during heart operation. Brother(s) Family Medical History: No Reported History Sister(s) Family Medical History: No Reported History Medications and Allergies Home Medications Medication Instructions Recorded Confirmed Type amLODIPine BESYLATE [Norvasc] 10 mg PO DAILY 09/17/16 09/29/18 History Aspirin [Adult Low Dose Aspirin EC] 81 mg PO DAILY 06/12/18 09/29/18 History Brimonidine Tartrate [Alphagan P 1 drops BOTH EYES BID ml 06/14/18 09/29/18 Rx 0.2% Ophth Soln] Levothyroxine Sodium [Synthroid] 100 mcg PO DAILY@0630 #30 tab 06/14/18 09/29/18 Rx Quinapril HCl [Accupril] 40 mg PO HS #0 06/14/18 09/29/18 Rx Multivitamins, Thera [Multivitamin 1 tab PO DAILY 09/29/18 09/29/18 History (formulary)] Allergies Allergy/AdvReac Type Severity Reaction Status Date / Time No Known Allergies Allergy Verified 09/29/18 20:21 Physical Exam Vitals: Vital Signs Temp Pulse Pulse Resp BP BP Pulse Ox 10/01/18 05:05 97.9 F 72 15 138/56 98 10/01/18 04:00 67 16 10/01/18 00:51 98.2 F 73 14 147/76 97 10/01/18 00:00 71 17 09/30/18 20:00 73 17 09/30/18 19:22 98.4 F 69 15 152/71 98 09/30/18 15:28 98.0 F 61 16 149/61 97 09/30/18 13:51 68 18 126/60 98 09/30/18 11:55 82 18 123/86 100 09/30/18 10:40 61 18 123/96 100 09/30/18 09:00 66 18 156/86 100 Intake and Output 09/30/18 10/01/18 10/01/18 22:59 06:59 14:59 Intake Total 250 340 Output Total 475 Balance 250 -135 Intake: Oral 250 340 Output: Urine 475 Other: Voiding Method Toilet Toilet # Voids 1 Results - Lab Results Most recent lab results Calcium 9.0 mg/dL (8.4-10.2) 09/30/18 10:59 Magnesium 1.8 mg/dL (1.6-2.3) 09/29/18 19:31 09/29/18 19:31 09/30/18 10:59 Assessment and Plan Plan: Assessment: 1. Hyponatremia. Patient appears euvolemic. Etiology is excessive water inta ke in the setting of low solute intake. Patient's urine osmolality was on the lower side at 261. 2. Hyperkalemia secondary to lisinopril. Better. 3. Pleuritic chest pain. No evidence of acute coronary syndrome. No evidence of pericardial effusion. Cardiology following. 4. Benign hypertension. Controlled. Plan: Maintain 1200 mL fluid restriction. Encourage oral solute intake, particularly protein. Check TSH and uric acid level. Monitor renal function closely as the patient received IV contrast on September 2018 for a CTA and is also maintained on NSAIDs for pain. Follow-up morning labs. Patient is currently in the observation unit. If sodium level improving, then she can be discharged home from nephrology standpoint. Thank you for the consultation. I will continue to follow the patient with you during her hospital stay.
[2018-10-01] MEDS: amLODIPine 10 MG TAB PO SCH (08:52)
[2018-10-01] MEDS: BRIMONIDINE TARTRATE 0.2% DROPS 5 ML BTL BOTH EYES SCH (08:52)
[2018-10-01] MEDS: ASPIRIN 81 MG PO SCH (08:52)
[2018-10-01] MEDS ORDERED: MULTIVITAMINS, THERA 1 EACH TAB PO SCH (09:00)
[2018-10-01] MEDS: KETOROLAC 30 MG/ML 1 ML VIAL IVP PRN (09:16)
[2018-10-01 09:36] LABS: Uric Acid 3.6 mg/dL (3.7-7.4)
--- NOTE | 2018-10-01 10:49 | P.PN ---
Subjective This is a pleasant 88 showed female past medical history significant for hypertension and hypothyroidism. She denies history of coronary artery disease and does not follow with a oven tender for any reason. We've been asked to see her in consultation secondary to chest discomfort. Patient is seen and examined resting comfortably in bed. She denies any further symptoms of chest discomfort. She states the ibuprofen given yesterday did help significantly. Echocardiogram revealed preserved LV systolic function with EF 55-60% with no evidence of pericardial effusion. Laboratory data reviewed, ESR 7, d-dimer 1.03, C-reactive protein 6.5, sodium 131, potassium 4.5, creatinine 0.62, TSH 3.82. CT chest negative for pulmonary embolism a small to moderate hiatal hernia. Blood pressure 128/78 heart rate 74 afeibrile and maintaining ox ygen saturation on room air. She has been seen in consultation by nephrology and placed on a fluid restriction. GENERAL: This is a 88-year-old female in no apparent distress at the time of my examination. HEENT: Head is atraumatic, normocephalic. Pupils are equal, round. Sclerae anicteric. Conjunctivae are clear. Mucous membranes of the mouth are moist. Neck is supple. There is no jugular venous distention. No carotid bruit is heard. LUNGS: Clear to auscultation no wheezes, rales or rhonchi. Mild chest tenderness on palpation in the midsternal region. HEART: Regular rate and rhythm with faint systolic ejection murmur at the base, no rubs or gallops. S1 and S2 heard. EXTREMITIES: No evidence of peripheral edema and no calf tenderness noted. ASSESSMENT Pleuritic chest pain, an acute coronary event has been ruled out. Hyperkalemia Hyponatremia Hypertension Valvular heart disease. Aortic stenosis, mitral regurgitation and tricuspid regurgitation. PLAN Ongoing medical management. Continue current medical regimen. Stable from a cardiac perspective. Follow up in the office in 2 weeks. Nurse Practitioner note has been reviewed, I agree with a documented findings and plan of care. Patient was seen and examined. Objective - Vital Signs Vital signs: Vital Signs Temp 98.4 F 10/01/18 08:00 Pulse 74 10/01/18 08:00 Resp 16 10/01/18 08:00 BP 128/78 10/01/18 08:00 Pulse Ox 95 10/01/18 08:00 Intake & Output 09/30/18 10/01/18 10/01/18 18:59 06:59 18:59 Intake Total 250 340 240 Output Total 475 1000 Balance 250 -135 -760 Intake: Oral 250 340 240 Output: Urine 475 1000 Other: Voiding Method Toilet # Voids 1 - Labs CBC & Chem 7: 09/29/18 19:31 10/01/18 08:06 Labs: Abnormal Lab Results - Last 24 Hours (Table) 09/30/18 09/30/18 09/30/18 Range/Units 10:59 10:59 10:59 D-Dimer 1.03 H (<0.60) mg/L FEU Sodium 126 L (137-145) mmol/L Chloride 96 L (98-107) mmol/L Carbon Dioxide 21 L (22-30) mmol/L BUN 18 H (7-17) mg/dL Glucose 112 H (74-99) mg/dL Osmolality 266 L (280-301) mosm/kg Uric Acid (3.7-7.4) mg/dL 10/01/18 10/01/18 Range/Units 08:06 08:06 D-Dimer (<0.60) mg/L FEU Sodium 131 L (137-145) mmol/L Chloride (98-107) mmol/L Carbon Dioxide (22-30) mmol/L BUN (7-17) mg/dL Glucose 121 H (74-99) mg/dL Osmolality (280-301) mosm/kg Uric Acid 3.6 L (3.7-7.4) mg/dL
[2018-10-01 12:15] VITALS: BP 115/65; PULSE 54; TEMP 97.5
== END 2018-10-01 14:52 | disposition home or self-care (01) ==
LOC: EC 18:54 → 1SOBS 22:11
PROVIDERS: ADMIT Internal Medicine; ATTEND Internal Medicine
DX: R09.1 Pleurisy (principal); R79.89 Other specified abnormal findings of blood chemistry; E87.5 Hyperkalemia; I10 Essential (primary) hypertension; E87.1 Hypo-osmolality and hyponatremia; H40.9 Unspecified glaucoma; E89.0 Postprocedural hypothyroidism; I08.3 Combined rheumatic disorders of mitral, aortic and tricuspid valves; G47.00 Insomnia, unspecified; T46.4X5A Adverse effect of angiotensin-converting-enzyme inhibitors, initial encounter; E66.9 Obesity, unspecified; Z68.30 Body mass index [BMI] 30.0-30.9, adult; W06.XXXA Fall from bed, initial encounter; Z79.82 Long term (current) use of aspirin; Z79.899 Other long term (current) drug therapy; Z79.890 Hormone replacement therapy; Z90.49 Acquired absence of other specified parts of digestive tract; Z85.850 Personal history of malignant neoplasm of thyroid; Z87.01 Personal history of pneumonia (recurrent); Z92.3 Personal history of irradiation; Z87.09 Personal history of other diseases of the respiratory system; Z82.49 Family history of ischemic heart disease and other diseases of the circulatory system; Z82.3 Family history of stroke
CPT/HCPCS: 96376 ×3; 96374; 96375; 99285; 36415; 93005 ×2; 93308; 85379; 84300; 83930; 82570; 80061; 80053; 80048 ×2; 85652; 84443; 84156; 83735 ×2; 84550; 84484 ×2; 85025; 85610; 85730; 86140; 83935; 71110; 71046; 71275; G0378 ×3; J1885 ×3; J2270; Q9967

== ENCOUNTER → 2018-11-11 | Outpatient (CLI) | payer MEDICARE ==
[2018-11-11 09:55] LABS: Basophils % (A) 1 %; Eosinophils # (A) 0.3 k/uL (0-0.7); Eosinophils % (A) 5 %; HCT 43.8 % (34.0-46.0); Lymphocytes # (A) 1.7 k/uL (1.0-4.8); Lymphocytes % (A) 33 %; MCH 29.5 pg (25.0-35.0); MCHC 34.1 g/dL (31.0-37.0); MCV 86.5 fL (80.0-100.0); Mean Platelet Volume 7.4; Monocytes # (A) 0.4 k/uL (0-1.0); Monocytes % (A) 8 %; Neutrophils # (A) 2.5 k/uL (1.3-7.7); Neutrophils % (A) 50 %; Platelet Count 230 k/uL (150-450); RBC 5.07 m/uL (3.80-5.40); WBC 5.1 k/uL (3.8-10.6)
[2018-11-11 17:59] LABS: African American GFR (CKD) 77.4 (60.0-200.0); Albumin 4.2 g/dL (3.80-4.90); Albumin/Globulin Ratio 2.47 (1.60-3.17); Anion Gap 7.6 mmol/L (4.00-12.00); BUN/Creat Ratio 18.75 Ratio (12.00-20.00); Carbon Dioxide 26.4 mmol/L (21.6-31.8); Globulin 1.7 g/dL (1.6-3.3); LDL Cholesterol,Calculated 143.6 mg/dL (0.0-131.0); Potassium 4.6 mmol/L (3.5-5.5); Total Bilirubin 0.6 mg/dL (0.2-1.2); Total Protein 5.9 g/dL (6.2-8.2); VLDL Calculation 26.4 mg/dL (5.00-40.00)
== END | disposition home or self-care (01) ==
LOC: LABWHC1 08:54
PROVIDERS: ATTEND Pediatrics
DX: Z00.00 Encounter for general adult medical examination without abnormal findings (principal); E03.9 Hypothyroidism, unspecified; E78.5 Hyperlipidemia, unspecified
CPT/HCPCS: 36415; 80053; 80061; 84439; 84443; 85025